=== PATIENT | female | born 1955 | race Caucasian/White ===

== ENCOUNTER → 2024-10-03 | Outpatient (CLI) | payer MEDICARE, SELFPAY ==
[2024-10-03 08:37] LABS: Basophils # (Auto) 0.1 Thou/mm3 (0.0-0.2); Basophils % (Auto) 1 % (0-2.5); Eosinophils # (Auto) 0.2 Thou/mm3 (0.0-0.5); Eosinophils % (Auto) 4 % (0-10); Hematocrit 40.9 % (36.0-46.0); Hemoglobin 13.6 g/dL (12.0-16.0); Immature Granulocytes % (Auto) 0 % (0-0); Immature Granulocytes Auto 0.03 Thou/mm3 (0.00-0.00); Lymphocytes # (Auto) 2.4 Thou/mm3 (1.0-4.8); Lymphocytes % (Auto) 35 % (10-50); Mean Corpuscular HGB Conc 33.3 g/dl (31.0-37.0); Mean Corpuscular Hemoglobin 28.9 pg (25.0-35.0); Mean Corpuscular Volume 87 fL (80-100); Monocytes # (Auto) 0.7 Thou/mm3 (0.0-0.8); Monocytes % (Auto) 11 % (0-12); Neutrophils # (Auto) 3.4 Thou/mm3 (1.8-7.7); Neutrophils % (Auto) 49 % (37-80); Nucleated Red Blood Cell % 0 /100 WBC (0); Platelet Count 284 Thou/mm3 (140-440); RDW Standard Deviation 40.6 fL (36.4-46.3); Red Blood Count 4.71 Miln/mm3 (4.00-5.20); White Blood Count 6.8 Thou/mm3 (3.6-11.0)
[2024-10-03 08:58] LABS: Glucose Estimated Average 151 mg/dL (80-131); Hemoglobin A1C 6.9 % Hgb (4.8-6.0); Vitamin B12 491 pg/mL (211-911); Vitamin D 25 Hydroxy Total 33.3 ng/mL (7.3-40.2)
[2024-10-03 09:05] LABS: Collection Type, Urine Clean Catch
[2024-10-03 09:07] LABS: Alanine Aminotransferase 28 U/L (10-49); Albumin, Serum 4.2 gm/dL (3.4-4.8); Alkaline Phosphatase 77 U/L (46-116); Anion Gap 9 (7-16); Aspartate Amino Transferase < 10 U/L (0-34); BUN/Creatinine Ratio 22 Ratio (12-20); Bilirubin,Total 0.4 mg/dL (0.3-1.2); Blood Urea Nitrogen 22 mg/dL (9-23); Calcium 9.2 mg/dL (8.3-10.6); Calcium (Corrected) 9.2 mg/dL (8.5-10.1); Carbon Dioxide 25.9 mMol/L (20.0-31.0); Cardiac Risk Estimate 3.6 RATIO (3.7-5.6); Chloride 104 mMol/L (98-107); Cholesterol 243 mg/dL (132-200); Globulin 2.1 gm/dL (2.3-3.5); Glucose 139 mg/dL (74-106); HDL Cholesterol 67 mg/dL (40-60); LDL Cholesterol,Calculated 154 mg/dL (0-130); Osmolality,Calculated 282 (275-295); Potassium 4.1 mMol/L (3.4-5.1); Sodium 139 mMol/L (136-145); Thyroid Stimulating Hormone 2.93 uIU/mL (0.55-4.78); Total Protein 6.3 gm/dL (5.7-8.2); Triglycerides 111 mg/dL (30-150); Uric Acid 5.4 mg/dL (3.1-7.8); eGFR > 60 See Note
[2024-10-03 09:36] LABS: Bilirubin,Urine Negative (Negative); Blood,Urine 2+ (Negative); Clarity,Urine Clear (Clear/Hazy); Color,Urine Lt-Yellow (Lt Yel-Yel); Culture Indicated,Urine Not Indicated; Glucose, Urine Negative (Negative); Ketones,Urine Negative (Negative); Leukocyte Esterase,Urine Negative (Negative); Nitrite,Urine Negative (Negative); PH,Urine 6.5 (5.0-7.0); Protein,Urine Negative (Neg - Trace); RBC,Urine 19 /hpf (0-3); Squamous Epithelial Cell,Urine 2 /hpf (0-5); Urobilinogen,Urine Negative mg/dL (0.0-1.0); WBC,Urine 2 /hpf (0-5)
== END | disposition home or self-care (01) ==
LOC: COPL 07:35
PROVIDERS: PCP Internal Medicine; Referring Provider Internal Medicine; Visit Provider Internal Medicine
DX: Z00.00 Encounter for general adult medical examination without abnormal findings (principal); E78.5 Hyperlipidemia, unspecified; J45.20 Mild intermittent asthma, uncomplicated; D51.9 Vitamin B12 deficiency anemia, unspecified; E55.9 Vitamin D deficiency, unspecified
CPT/HCPCS: 36415; 80053; 80061; 81001; 82306; 82607; 83036; 84443; 84550; 85025

== ENCOUNTER 2025-04-01 16:12 | Inpatient (IN) | payer MEDICARE, SELFPAY ==
[2025-04-01] VITALS (7 sets, daily range): BP systolic 130–174; BP diastolic 69–87; PULSE 62–101; RESP 15–19; TEMP 36.4–37.2; O2SAT 96–99; BMI 26.6
--- NOTE | 2025-04-01 16:27 | PD.EDNEURO ---
Neuro Symptoms Deficit-RME/HPI General Chief Complaint: Eye Problems Stated Complaint: LOST VISION LEFT EYE AT 1550, PAIN LEFT EYE Time Seen by Provider: 04/01/25 16:19 Arrival date/time: 04/01/25 16:12 Related Data Home Medications ?Medication ?Instructions ?Recorded ?Confirmed verapamil 120 mg tablet (Calan) 240 mg PO QDAY #0 tabs 02/05/15 05/14/23 ezetimibe 10 mg tablet 10 mg PO QDAY 01/13/22 05/14/23 Previous Rx's ?Medication ?Instructions ?Recorded metoclopramide HCl 5 mg tablet 5 mg PO QDAY 90 days #90 tabs 05/15/23 (Reglan) pantoprazole 40 mg tablet,delayed 40 mg PO QDAY 90 days #90 tabs 05/15/23 release (Protonix) Allergies Allergy/AdvReac Type Severity Reaction Status Date / Time No Known Allergies Allergy Verified 04/01/25 16:16 Course Vital Signs Vital signs: Vital Signs Temperature 98.6 F 04/01/25 16:23 Pulse Rate 101 H 04/01/25 16:23 Respiratory Rate 16 04/01/25 16:23 Blood Pressure 174/85 H 04/01/25 16:23 Pulse Oximetry (%) 96 04/01/25 16:23 Oxygen Delivery Method Room Air 04/01/25 16:23 Neuro Symptoms / Deficit MDM Narrative MDM Narrative:: Scribe Attestation: Katelyn Tellez, am scribing for and in the presence of Dr. Medrano. Provider Notation: Although this document has been carefully reviewed, there may still be some phonetic and other typographical errors. These errors are purely grammatical due to imperfections in the software program and should not be construed in any way to compromise the substance of the patient's medical care during this visit. Patient data External records reviewed:: [facility] previous records Clinical information provided by:: patient Social determinants that could affect healthcare access:: none Discharge Plan Prescriptions/Referrals Prescriptions/Med Rec: No Action ezetimibe 10 mg tablet 10 mg PO QDAY verapamil [Calan] 120 MG tablet 240 mg PO QDAY Qty: 0 pantoprazole [Protonix] 40 mg Tablet,Delayed Release (Dr/Ec) 40 mg PO QDAY 90 Days Qty: 90 1RF metoclopramide HCl [Reglan] 5 mg Tablet 5 mg PO QDAY 90 Days Qty: 90 1RF Patient/Caregiver Discharge Instructions Print Language: Portuguese
--- NOTE | 2025-04-01 16:29 | XR_ITS ---
Examination: AP chest single view Technique: Upright AP portable chest single view Date and time: April 01, 2025, 1702 hrs. Indications: Stroke alert altered mental status focal neurologic deficit today. Findings: Mild enlargement left ventricle. No aspiration pneumonia. No pulmonary edema. Moderate osteopenia. Impression: Negative for aspiration pneumonia.
--- NOTE | 2025-04-01 16:29 | EKG_ITS ---
[facility] Test Date: 2025-04-01 Pat Name: DIDIER VERDIN Department: Room: - Gender: Female [employer]: : 1955 Requested By: Clare Gardner Order Number: [id number] Reading MD: Clare Gardner Measurements Intervals [place] Rate: 67 P: 79 IL: 162 QRS: 89 QRSD: 97 T: 99 QT: 379 QTc: 401 Interpretive Statements SINUS RHYTHM NONSPECIFIC T-WAVE ABNORMALITY No previous ECG available for comparison /[id number]/[id number].pdf
--- NOTE | 2025-04-01 16:29 | XR_ITS ---
Examination: CT brain head without contrast. 2-D sagittal coronal reconstructions Date and time of exam:April 01, 2025, 1636 hrs. Indications: Stroke alert, left eye vision loss today CTDI: vol (mGy):47.4 DLP: (mGycm):911 Technique: Multiple CT axial sections of the brain have been obtained, 5 mm slice thickness. Contrast has not been administered. 2-D sagittal, coronal reconstructions have been obtained Low dose protocols were performed. One or more of the following dose reduction techniques were used; automated exposure control, adjustment of the mA and/or KV according to patient size, use of iterative reconstruction technique. Findings: No significant ventricular enlargement. Intra-axial or extra-axial hemorrhage density is not seen. No mass effect or midline shift Basal cisterns are not remarkable. Fourth ventricle is midline. Cranial vault intact. Impression: Negative for acute hemorrhage, mass effect or midline shift
--- NOTE | 2025-04-01 16:29 | XR_ITS ---
Examination: CTA carotids with intravenous contrast CTA brain, head with intravenous contrast. 2-D sagittal, coronal reconstructions. 3-D reconstructions. Exam date and time: April 01, 2025, 1646 hrs. Indications: Stroke alert, onset focal neurologic deficit loss of vision in the left side today CTDI: vol (mGy) 15.7 DLP: (mGycm) 159 Technique: Multiple CTA axial brain, head carotid images post intravenous contrast injection 75 cc, [id number]. 2-D sagittal, coronal reconstructions. 3-D reconstructions, 3-D post processing including vascular maximum intensity projection images. Low dose protocols were performed. One or more of the following dose reduction techniques were used; automated exposure control, adjustment of the mA and/or KV according to patient size, use of iterative reconstruction technique. Findings: No significant common carotid carotid bifurcation or internal carotid artery stenoses. Dominant left vertebral artery in the neck with no critical stenoses. Intracranial vertebral arteries basilar artery posterior cerebral artery branches do fill Juxtasellar supraclinoid portions of the internal carotid arteries, M1 segments middle cerebral arteries and anterior cerebral arteries demonstrate no large vessel arterial occlusions Impression: No significant neck arterial stenoses No cerebral large vessel arterial occlusions or thrombus
[2025-04-01 16:46] LABS: Basophils # (Auto) 0.1 Thou/mm3 (0.0-0.2); Basophils % (Auto) 1 % (0-2.5); Eosinophils # (Auto) 0.3 Thou/mm3 (0.0-0.5); Eosinophils % (Auto) 3 % (0-10); Hematocrit 42.8 % (36.0-46.0); Hemoglobin 14.7 g/dL (12.0-16.0); Immature Granulocytes Auto 0.03 Thou/mm3 (0.00-0.00); Lymphocytes # (Auto) 3.4 Thou/mm3 (1.0-4.8); Lymphocytes % (Auto) 34 % (10-50); Mean Corpuscular HGB Conc 34.3 g/dl (31.0-37.0); Mean Corpuscular Hemoglobin 30.1 pg (25.0-35.0); Mean Corpuscular Volume 88 fL (80-100); Monocytes # (Auto) 0.6 Thou/mm3 (0.0-0.8); Monocytes % (Auto) 6 % (0-12); Neutrophils # (Auto) 5.6 Thou/mm3 (1.8-7.7); Neutrophils % (Auto) 56 % (37-80); Nucleated Red Blood Cell # 0.00 Thou/mm3 (0.00-0.00); Nucleated Red Blood Cell % 0 /100 WBC (0); Platelet Count 274 Thou/mm3 (140-440); RDW Standard Deviation 41.3 fL (36.4-46.3); Red Blood Count 4.89 Miln/mm3 (4.00-5.20); White Blood Count 10.0 Thou/mm3 (3.6-11.0)
[2025-04-01 16:57] LABS: INR 1.0 (0.9-1.3); Partial Thromboplastin Time 24.8 Seconds (22.0-36.0); Prothrombin Time 10.9 Seconds (9.0-12.2)
[2025-04-01 17:01] LABS: HCG Titer if Positive Negative
--- NOTE | 2025-04-01 17:03 | ESCONSULT_ITS ---
Tele Neuro Consultation Consultation Date 04/01/25 Most Recent Vital Signs Last Vital Signs Temp 99.0 F 04/01/25 16:56 Pulse 77 04/01/25 16:58 Resp 16 04/01/25 16:56 BP 153/69 H 04/01/25 16:56 Pulse Ox 98 04/01/25 16:56 O2 Del Method Room Air 04/01/25 16:56 Laboratory-Coagulation Panel PT 10.9 Seconds (9.0-12.2) 04/01/25 16:30 INR 1.0 (0.9-1.3) 04/01/25 16:30 APTT 24.8 Seconds (22.0-36.0) 04/01/25 16:30 Consultation Narrative [facility] Tele[facility]urology Consult [facility] Patient Name:???DIDIER VERDIN Date of :???1955 Identification Number:??? Date of Service:???04/01/2025 16:27:09 Diagnosis:?H54.62 - Unqualified visual loss, left eye, normal vision right eye Impression: ?Transient left vision loss. The differential diagnosis includes central retinal artery occlusion (CRAO), embolic transient ischemic attack (TIA) involving the posterior cerebral or ophthalmic circulation, and less likely, temporal arteritis. ? ?There are no systemic signs or symptoms to suggest giant cell arteritis, but given age and presentation, ESR and CRP are recommended to rule out temporal arteritis. ? ?I recommend MRI brain to assess for acute ischemic changes and to evaluate posterior circulation structures. ? ?CT head was negative; CTA head and neck is negative for LVO ? ?Ophthalmology consultation is also recommended to evaluate retinal findings that may support CRAO. ? ?Recommend initiating dual antiplatelet therapy with aspirin 81 mg daily and clopidogrel 75 mg daily until diagnosis is confirmed. ? ?Given the transient nature of symptoms and absence of disabling deficit, the patient is not a candidate for TNK. Our recommendations are outlined below. Recommendations: ? Stroke/Telemetry Floor ? Neuro Checks ? Bedside Swallow Eval ? DVT Prophylaxis ? IV Fluids, Normal Saline ? Head of Bed 30 Degrees ? Euglycemia and Avoid Hyperthermia (PRN Acetaminophen) Advanced Imaging: CTA Head and Neck Completed. LVO:No Patient is not a candidate for PILY Metrics: Last Known Well: 04/01/2025 16:30:51 Dispatch Time: 04/01/2025 16:27:09 Arrival Time: 04/01/2025 16:30:53 Initial Response Time: 04/01/2025 16:28:34Symptoms: vision loss . Initial patient interaction: 04/01/2025 16:37:23 NIHSS Assessment Completed: 04/01/2025 16:45:30Patient is not a candidate for Thrombolytic. Thrombolytic Medical Decision: 04/01/2025 16:45:33Patient was not deemed candidate for Thrombolytic because of following reasons: other diagnosis suspected suspect crao. symptoms improved . CT Head: I personally reviewed all the CT images that were available to me and it showed: no acute changes Primary Provider Notified of Diagnostic Impression and Management Plan on: 04/01/2025 16:48:04 History of Present Illness:Patient is a 69 year old Female. Patient was brought by EMS for symptoms of vision loss . The patient is a 69-year-old right-handed female with a history of supraventricular tachycardia (SVT), diabetes mellitus, and prior cardiac ablations, who presented at approximately 3:50 PM with the acute onset of left- sided vision loss. The episode began suddenly and was initially characterized by complete vision loss in the left visual field, lasting approximately two minutes. This was followed by the perception of waves in the same field, with partial improvement noted thereafter. However, the vision changes recurred briefly before reportedly resolving to her baseline at the time of evaluation. The patient denies any associated neurological symptoms such as weakness, numbness, speech disturbance, vertigo, or headache. She has no history of similar symptoms, no prior migraines, and no jaw claudication or scalp tenderness. Her blood pressure remained within normal limits throughout the episode. She reports no recent trauma or infections. There is no known history of autoimmune disease. On examination, no focal neurological deficits were appreciated, and she reported that her vision had returned to normal. Past Medical History: ?Hypertension ?Diabetes Mellitus ?Hyperlipidemia ?There is no history of Atrial Fibrillation ?There is no history of Stroke ?There is no history of Seizures Medications: No Anticoagulant use? No Antiplatelet use Reviewed EMR for current medications Allergies:? Reviewed Social History: Patient Is: Single Smoking: No Alcohol Use: No Drug Use: No Family History: There is no family history of premature cerebrovascular disease pertinent to this consultation ROS : 14 Points Review of Systems was performed and was negative except mentioned in HPI. Past Surgical History: There Is No Surgical History Contributory To Today?s Visit Examination: BP(174/85),?Pulse(101), 1A: Level of Consciousness - Alert; keenly responsive?+ 0 1B: Ask Month and Age - Both Questions Right?+ 0 1C: Blink Eyes & Squeeze Hands - Performs Both Tasks?+ 0 2: Test Horizontal Extraocular Movements - Normal?+ 0 3: Test Visual Stevens - No Visual Loss?+ 0 4: Test Facial Palsy (Use Grimace if Obtunded) - Normal symmetry?+ 0 5A: Test Left Arm Motor Drift - No Drift for 10 Seconds?+ 0 5B: Test Right Arm Motor Drift - No Drift for 10 Seconds?+ 0 6A: Test Left Leg Motor Drift - No Drift for 5 Seconds?+ 0 6B: Test Right Leg Motor Drift - No Drift for 5 Seconds?+ 0 7: Test Limb Ataxia (FNF/Heel-Jade) - No Ataxia?+ 0 8: Test Sensation - Normal; No sensory loss?+ 0 9: Test Language/Aphasia - Normal; No aphasia?+ 0 10: Test Dysarthria - Normal?+ 0 11: Test Extinction/Inattention - No abnormality?+ 0 NIHSS Score:?0 Pre-Morbid Modified Towanda Scale: 0 Points = No symptoms at all Spoke with :?Dr Campo This consult was conducted in real time using interactive audio and video technology. Patient was informed of the technology being used for this visit and agreed to proceed. Patient located in hospital and provider located at home/office setting. Patient is being evaluated for possible acute neurologic impairment and high probability of imminent or life-threatening deterioration. I spent total of 35 minutes providing care to this patient, including time for face to face visit via telemedicine, review of medical records, imaging studies and discussion of findings with providers, the patient and/or family. Dr René Burger [facility] For Inpatient follow-up with [facility] physician please call [facility] at . As we are not an outpatient service for any post hospital discharge needs please contact the hospital for assistance. If you have any questions for the [facility] physicians or need to reconsult for clinical or diagnostic changes please contact us via [facility] at . Signature :Colin Burger
[2025-04-01 17:18] LABS: Sed Rate (ESR) 14 mm/hr (0-30)
[2025-04-01 17:26] LABS: Alanine Aminotransferase 55 U/L (10-49); Albumin, Serum 4.7 gm/dL (3.4-4.8); Albumin/Globulin Ratio 2.4 (1.2-2.2); Alkaline Phosphatase 85 U/L (46-116); Anion Gap 11 (7-16); Aspartate Amino Transferase 31 U/L (0-34); BUN/Creatinine Ratio 14 Ratio (12-20); Bilirubin,Total 0.4 mg/dL (0.3-1.2); Blood Urea Nitrogen 11 mg/dL (9-23); C-Reactive Protein < 0.5 mg/dL (0.0-0.9); Calcium 9.9 mg/dL (8.3-10.6); Calcium (Corrected) 9.9 mg/dL (8.5-10.1); Carbon Dioxide 24.1 mMol/L (20.0-31.0); Chloride 106 mMol/L (98-107); Creatine Kinase 58 U/L (34-171); Creatinine (Component) 0.8 mg/dL (0.6-1.3); Estimated Creatinine Clearance 63.9 mL/min (>60); Globulin 2.0 gm/dL (2.3-3.5); Glucose 140 mg/dL (74-106); Magnesium 2.1 mg/dL (1.6-2.6); Osmolality,Calculated 282 (275-295); Potassium 3.8 mMol/L (3.4-5.1); Sodium 141 mMol/L (136-145); Total Protein 6.7 gm/dL (5.7-8.2); Troponin I < 0.020 ng/mL (0.0-0.045); eGFR > 60 See Note
--- NOTE | 2025-04-01 17:43 | PD.EDEYE ---
ED Eye Problem RME/HPI General Chief complaint: Eye Problems Stated complaint: LOST VISION LEFT EYE AT 1550, PAIN LEFT EYE Time Seen by Provider: 04/01/25 16:19 Arrival date/time: 04/01/25 16:12 Mode of arrival: ambulatory RME / HPI RME / HPI Narrative: Ms. George is a 69-year-old female with past medical history of SVT (follows Dr. Thakur) s/p cardiac ablation, umy-xgvqutc-lbnazokgh type 2 diabetes mellitus, dyslipidemia, GERD and chronic constipation who presented to [facility] emergency department with a chief complaint of acute onset of left-sided vision loss. Patient reported that her the episode became suddenly reported complete vision loss of the entire left eye lasting for approximately 2 minutes followed by waves of perception in the field and partial improvement thereafter, now back at her baseline. Currently patient denies any visual deficit, denies seeing any black spots. Patient otherwise denies any other symptoms, complaints of constipation which has been chronic she was prescribed lactulose recently for the same. Patient's primary care physician is Dr. Campos, director strategy Dr. Thakur, patient reports seeing a urologist in [place]. Related Data Home Medications ?Medication ?Instructions ?Recorded ?Confirmed verapamil 120 mg tablet (Calan) 240 mg PO QDAY #0 tabs 02/05/04/01/25 Previous Rx's ?Medication ?Instructions ?Recorded aspirin 81 mg tablet,delayed 81 mg PO QDAY #30 tabs 04/03/25 release atorvastatin 20 mg tablet 40 mg (2 x 20 mg) PO HS #30 tabs 04/03/25 Allergies Allergy/AdvReac Type Severity Reaction Status Date / Time No Known Allergies Allergy Verified 04/01/25 16:16 Review of Systems Review of Systems Systems Reviewed: All systems reviewed, normal except as documented Past Medical History Past Medical History Comments PMH COMMENT: PMH: Positive for SVT (follows Dr. Thakur) s/p cardiac ablation, dyx-gqxdktm-gcumkuudl type 2 diabetes mellitus, dyslipidemia, GERD and chronic constipation PSHx: Ablation in 2007, intraocular lens placement Allergies: No known allergies Social history: -Smoking: History of greater than 40 pack years -Alcohol Use: Denies -Illicit Drug Use: Denies Family History: Denies pertinent family history ED Exam Narrative Physical exam: Physical Exam General: Awake and in no acute distress. Conversational and non-toxic appearing. HEENT: Normocephalic, atraumatic, mucous membranes moist. Heart: Regular rate and rhythm, no murmurs. Lungs: Clear to auscultation with no wheezing or crackles. Abdomen: Soft, nondistended, nontender, positive bowel sounds. ?No guarding or rebound tenderness. Neurologic: Alert and oriented x3, no gross neurological deficit, and patient able to move all 4 extremities. Extremities: No edema. Skin: No rash or ecchymoses. Course Quality Measures none Orders Category Date Time Status Admit to Inpatient Status Routine Admission 04/01/25 18:09 Active Patient Condition Routine Admission 04/01/25 18:08 Ordered Activity as Tolerated Routine Care 04/01/25 18:09 Ordered Bedside Blood Glucose NOW Care 04/01/25 16:29 Completed Pressure Vessel Inspector NOW Care 04/01/25 16:29 Completed Continuous Pulse Oximetry NOW Care 04/01/25 16:29 Completed Continuous Pulse Oximetry NOW Care 04/01/25 18:08 Completed EKG (ED ONLY) *Do not use* NOW Care 04/01/25 16:29 Completed Flu & Pneumonia Vaccine Screen ONCE Care 04/01/25 18:08 Completed In and Out Catheter NEEDED Care 04/01/25 16:29 Completed Insert IV NOW Care 04/01/25 16:29 Completed Miscellaneous Nursing Order NOW Care 04/01/25 18:08 Completed NIH Stroke Scale now Care 04/01/25 16:29 Completed NPO NOW Care 04/01/25 16:29 Completed Neuro Check Q1HR Care 04/01/25 16:29 Completed Neuro Check Q4H Care 04/01/25 18:08 Completed Notify provider NEEDED Care 04/01/25 18:08 Completed Nurse Swallow Screen x1 Care 04/01/25 16:29 Completed Obtain weight daily Care 04/01/25 18:09 Completed Sequential Compression Device QSHIFT Care 04/01/25 18:08 Completed Consult to Neurology / Tele-Neurology Routine Cons 04/01/25 18:12 Active Consult to Neurology / Tele-Neurology Stat Cons 04/01/25 16:[address] angio stroke protocol Stat Exams 04/01/25 16:[address] stroke protocol Stat Exams 04/01/25 16:29 Completed EKG (ED Only) Stat Exams 04/01/25 16:29 Draft XR chest 1V portable Stat Exams 04/01/25 16:29 Completed C-Reactive Protein Stat Lab 04/01/25 16:30 Completed CBC AM DRAW Lab 04/02/25 06:04 Completed CBC AM DRAW Lab 04/03/25 05:48 Completed CBC Stat Lab 04/01/25 16:30 Completed CK [Creatine Kinase] Stat Lab 04/01/25 16:30 Completed Comprehensive Metabolic Panel AM DRAW Lab 04/02/25 06:04 Completed Comprehensive Metabolic Panel AM DRAW Lab 04/03/25 05:48 Completed Comprehensive Metabolic Panel Stat Lab 04/01/25 16:30 Completed Drug Screen,Urine Stat Lab 04/01/25 17:47 Completed HCG Titer if Positive Stat Lab 04/01/25 16:30 Completed Lipid Panel AM DRAW Lab 04/02/25 06:04 Completed Magnesium AM DRAW Lab 04/02/25 06:04 Completed Magnesium Stat Lab 04/01/25 16:30 Completed Partial Thromboplastin Time Stat Lab 04/01/25 16:30 Completed Phosphorous AM DRAW Lab 04/02/25 06:04 Completed Prothrombin Time with INR Stat Lab 04/01/25 16:30 Completed Sed Rate (ESR) Stat Lab 04/01/25 16:30 Completed Troponin I Stat Lab 04/01/25 16:30 Completed Urinalysis, C/S if Indicated Stat Lab 04/01/25 17:47 Completed Acetaminophen Tab [Tylenol Tab] Med 04/01/25 18:08 Discontinued 650 mg PO Q6H PRN Ondansetron Inj [Zofran Inj] Med 04/01/25 18:08 Discontinued 4 mg IVP Q6H PRN Senna [Senokot] Med 04/02/25 09:00 Discontinued 1 tab PO QDAY Code Status Routine Oth 04/01/25 18:08 Completed Oxygen Delivery NOW RT 04/01/25 16:29 Completed Vital Signs Vital signs: Vital Signs Temperature 98.6 F 04/01/25 16:23 Pulse Rate 101 H 04/01/25 16:23 Respiratory Rate 16 04/01/25 16:23 Blood Pressure 174/85 H 04/01/25 16:23 Pulse Oximetry (%) 96 04/01/25 16:23 Oxygen Delivery Method Room Air 04/01/25 16:23 Eye MDM Narrative MDM Narrative:: Patient p/w sudden onset left eye vision loss, transient now back at her baseline. In the ED stroke alert was initiated, patient was seen by teleneurologist, teleneuro NIHSS score 0, CT scan of head negative for any acute hemorrhage, midline shift. CTA head and neck negative for any large vessel occlusion. EKG obtained in ED shows sinus rhythm teleneuro recommendations currently to obtain MRI, no TNK indicated for now, obtain ESR CRP, in-house neurology consult. Per teleneuro DDx giant cell arteritis, complicated migraine. Intraocular pressure measured in ED, right eye IOP 13, left IOP 12 with tonometer. No evidence of glaucoma. Bedside ultrasound left eye shows no retinal detachment, vitreous detachment or hemorrhage. No evidence of increased ICP. Will admit for stroke work up and management of transient unilateral vision loss. # Painless loss of vision left eye, resolved # CVA workup Past medical history of SVT (follows Dr. Thakur) s/p cardiac ablation, jzc-ckkxrcb-htbmyibgm type 2 diabetes mellitus, dyslipidemia, GERD and chronic constipation Reported left-sided vision loss, sudden with complete loss, symptoms resolved on exam, no other neurological deficits or visual deficits currently. NIHSS 0, CT head negative, CTA negative, ED showed sinus rhythm Intraocular pressure measured in ED, right eye IOP 13, left IOP 12 with tonometer. Bedside ultrasound left eye shows no retinal detachment -Ordered ESR CRP -Consulted hospitalist team for admission for MRI and further workup Case discussed with Attending Physician Dr. Mitchell Campo MD Internal Medicine PGY-2 Disclaimer: This note was dictated by speech recognition. Minor errors in pega developer may be present due to voice recognition software. Patient data External records reviewed:: [facility] previous records Clinical information provided by:: patient Social determinants that could affect healthcare access:: none Patient has the following chronic illnesses:: Positive for SVT (follows Dr. Thakur) s/p cardiac ablation, hku-lcbckds-ogpowxtsb type 2 diabetes mellitus, dyslipidemia, GERD and chronic constipation How is presenting disease/condition affected by chronic disease/condition?: caused by (Risk factors as above) Evaluation data The following diagnostics were reviewed and interpreted by me:: lab results, radiology exam(s) and EKG tracing(s) Lab and/or radiology exams considered but not ordered:: N/A Interpretation Summary: CT scan of head negative for any acute hemorrhage, midline shift. CTA head and neck negative for any large vessel occlusion. EKG obtained in ED shows sinus rhythm Medications / Prescriptions Medications or Prescriptions considered but not ordered:: N/A Medication administrations:: Medication Administration History Discontinued Medications Acetaminophen (Acetaminophen 325 Mg Tablet) 650 mg PO Q6H PRN PRN Reason: PAIN SCALE 1-3 (mild Stop: 05/01/25 18:07 Last Admin: 04/02/25 19:52 Dose: 650 mg Documented By: JASON Alprazolam (Alprazolam 0.25 Mg Tablet) 0.5 mg PO X1 ONE Stop: 04/02/25 19:22 Last Admin: 04/02/25 20:18 Dose: 0.5 mg Documented By: JASON Alprazolam (Alprazolam 0.25 Mg Tablet) 0.5 mg PO HS PRN PRN Reason: ANXIETY Stop: 04/08/25 20:59 Aspirin (Aspirin 325 Mg Tablet) 325 mg PO X1 ONE Stop: 04/01/25 18:15 Last Admin: 04/01/25 19:00 Dose: 325 mg Documented By: KESHIA Aspirin (Aspirin Ec 81 Mg Tabec) 81 mg PO QDAY [facility] Stop: 05/02/25 08:59 Last Admin: 04/03/25 09:16 Dose: 81 mg Documented By: Admin: 04/02/25 09:58 Dose: 81 mg Documented By: SUNDAR Atorvastatin Calcium (Atorvastatin Calcium 20 Mg Tablet) 40 mg PO HS [facility] Stop: 05/01/25 20:59 Last Admin: 04/02/25 20:17 Dose: 40 mg Documented By: Admin: 04/01/25 21:28 Dose: 40 mg Documented By: VIRY Clopidogrel Bisulfate (Clopidogrel Bisulfate 75 Mg Tablet) 300 mg PO X1 ONE Stop: 04/01/25 18:15 Last Admin: 04/01/25 18:54 Dose: 300 mg Documented By: KESHIA Clopidogrel Bisulfate (Clopidogrel Bisulfate 75 Mg Tablet) 75 mg PO QDAY [facility] Stop: 05/02/25 08:59 Last Admin: 04/03/25 09:16 Dose: 75 mg Documented By: Admin: 04/02/25 09:58 Dose: 75 mg Documented By: SUNDAR Verapamil 240 Mg 24 (Hr Er) 0 ea PO QDAY [facility] Stop: 05/02/25 08:59 Last Admin: 04/03/25 10:56 Dose: 1 capsule Documented By: Admin: 04/02/25 12:49 Dose: 1 capsule Documented By: SUNDAR Dextrose (Dextrose 50%-Water Inj 50 Ml Syringe) 25 ml IV Q15MIN PRN PRN Reason: BG 50-70 responsive npo pt Stop: 05/01/25 18:49 Dextrose (Dextrose 50%-Water Inj 50 Ml Syringe) 50 ml IV Q15MIN PRN PRN Reason: BG <50 OR BG <70 & pt unresponsive Stop: 05/01/25 18:49 Diphenhydramine HCl (Diphenhydramine 25 Mg Capsule) 25 mg PO Q6HR PRN PRN Reason: ITCHING Stop: 05/02/25 11:36 Glucagon (Glucagon Inj 1 Mg Vial) 1 mg IM Q15MIN PRN PRN Reason: BG <70, and no IV access Insulin Human Lispro (Insulin Lispro (Admelog) 1 Unit/0.01 Ml Unit) 0 unit SC [facility]; Protocol Stop: 05/02/25 07:29 Last Admin: 04/03/25 08:00 Dose: Not Given Documented By: CARTER Non-Admin Reason: Patient Refused Admin: 04/02/25 17:18 Dose: Not Given Documented By: SUNDAR Non-Admin Reason: BG 107 Admin: 04/02/25 12:30 Dose: Not Given Documented By: SUNDAR Non-Admin Reason: BG 91 Admin: 04/02/25 07:31 Dose: Not Given Documented By: SUNDAR Non-Admin Reason: BG 116 Lactulose (Lactulose Syrup 20 Gm/30 Ml Udc) 10 gm PO X1 ONE; Protocol Stop: 04/02/25 19:22 Last Admin: 04/02/25 20:17 Dose: 10 gm Documented By: JASON Melatonin (Melatonin 3 Mg Tablet) 6 mg PO X1 ONE Stop: 04/01/25 23:03 Last Admin: 04/01/25 23:22 Dose: 6 mg Documented By: VIRY Melatonin (Melatonin 3 Mg Tablet) 6 mg PO HS ALESSIO Stop: 05/02/25 20:59 Last Admin: 04/02/25 20:26 Dose: Not Given Documented By: JASON Non-Admin Reason: Patient Refused Ondansetron HCl (Ondansetron Inj 2 Mg/Ml Inj 2 Ml) 4 mg IVP Q6H PRN; Protocol PRN Reason: NAUSEA OR VOMITING Stop: 05/01/25 18:07 Patient Own Medication (Patient's Own Med 1 Ea Ea) 240 ea PO QDAY ALESSIO Stop: 05/02/25 08:59 Polyethylene Glycol (Polyethylene Glycol 17 Gm Packet) 17 gm PO X1 PRN PRN Reason: constipation Sennosides (Senna Tablet) 1 tab PO QDAY ALESSIO; Protocol Stop: 05/02/25 08:59 Last Admin: 04/03/25 09:15 Dose: 1 tab Documented By: Admin: 04/02/25 09:58 Dose: 1 tab Documented By: SUNDAR as above Consultations Consultation(s) initiated? (list below): Yes Consultation #1 (Physician, Specialty, Details): Teleneuro, stroke Alert Diagnosis Eye Problem Differential Diagnosis: other Most likely diagnosis given after review of the tests above:: Complicated migraine, TIA, stroke, giant cell arteritis, MS Admission Indicated Admission indicated?: indicated Explain why admission is indicated or not indicated:: Admission indicated for CVA workup Admission Request Was there a request for admission?: Yes Admission Attestation Admission request attestation: Discussed case with Hospitalist service regarding admission. Discussed patients ED course, exam findings, labs, and radiology results. The Hospitalist [agrees] to accept the patient for admission. Disposition Plan Disposition Plan: Admit Critical Care Time Critical Care Time Critical Care Time: Yes Total Critical Care Time (min.): 60 Attestation: ?I spent 60 minutes of critical care time with this patient not including reportable procedures. There was an acute impairment of an organ system with a high probability of imminent or life threatening deterioration in the patient's condition. Interventions and changes required in the course of therapy are located in the chart. Time involved was spent in direct patient care, reviewing ancillary data, old records, consulting with decision makers, EMS, other doctors, giving orders and documenting. Discharge Plan Plan Patient Disposition: Admit Acute Care w/in Hospital Patient condition on transfer: Stable Problem List Clinical Impression: TIA (transient ischemic attack)
[2025-04-01 18:02] LABS: Collection Type, Urine Clean Catch; Squamous Epithelial Cell,Urine 0 /hpf (0-5)
[2025-04-01 18:07] LABS: Bilirubin,Urine Negative (Negative); Blood,Urine 1+ (Negative); Clarity,Urine Clear (Clear/Hazy); Color,Urine Colorless (Lt Yel-Yel); Culture Indicated,Urine Not Indicated; Glucose, Urine Negative (Negative); Ketones,Urine Negative (Negative); Leukocyte Esterase,Urine Negative (Negative); Nitrite,Urine Negative (Negative); PH,Urine 6.5 (5.0-7.0); Protein,Urine Negative (Neg - Trace); RBC,Urine 2 /hpf (0-3); Specific Gravity,Urine 1.021 (1.001-1.035); Urobilinogen,Urine Negative mg/dL (0.0-1.0); WBC,Urine < 1 /hpf (0-5)
--- NOTE | 2025-04-01 18:11 | ECHO_ITS ---
Transthoracic Echo Report Ht (in): 64 Wt (lb): 155 Exam Location: Echo Lab Status: Inpatient Director Of Search Engine Marketing: Janelle Juarez Indications: Procedure Performed: BP: 141 / 86 HR: 64 Technical Quality: Technically difficult study MEASUREMENTS (Male / Female) Normal Values 2D ECHO LV Diastolic Diameter PLAX 4.3 cm 4.2 - 5.9 / 3.9 - 5.3 cm LV Systolic Diameter PLAX 2.7 cm IVS Diastolic Thickness 0.9 cm 0.6 - 1.0 / 0.6 - 0.9 cm LVPW Diastolic Thickness 1.0 cm 0.6 - 1.0 / 0.6 - 0.9 cm LV Relative Wall Thickness 0.4 LVOT Diameter 1.8 cm LV Ejection Fraction MOD BP 55.3 % >= 55 % LV Cardiac Index MOD BP 1345.7 cm?/min?m? LV Ejection Fraction MOD 4C 48.6 % LV Cardiac Index MOD 4C 1078.7 cm?/min?m? LV Ejection Fraction 4C AL 50.2 % LV Cardiac Index 4C AL 1156.5 cm?/min?m? LV Ejection Fraction MOD 2C 58.5 % LV Cardiac Index MOD 2C 1427.6 cm?/min?m? LV Ejection Fraction 2C AL 60.4 % LV Cardiac Index 2C AL 1457.5 cm?/min?m? LA Volume Index 24.3 cm?/m? 16 - 28 cm?/m? M-MODE Aortic Root Diameter MM 3.2 cm LA Systolic Diameter MM 3.3 cm LA Ao Ratio MM 1.0 AV Cusp Separation MM 2.0 cm DOPPLER AV Peak Velocity 109.0 cm/s AV Peak Gradient 4.8 mmHg AV Mean Gradient 2.0 mmHg AV Velocity Time Integral 27.2 cm LVOT Peak Velocity 96.8 cm/s LVOT Peak Gradient 3.7 mmHg LVOT Velocity Time Integral 19.8 cm LVOT Cardiac Index 1793.7 cm?/min?m? AV Area Cont Eq vti 1.9 cm? AV Area Cont Eq pk 2.3 cm? MV Area PHT 3.1 cm? MR Peak Velocity 462.0 cm/s MR Peak Gradient 85.4 mmHg Mitral E Point Velocity 82.0 cm/s Mitral A Point Velocity 117.0 cm/s Mitral E to A Ratio 0.7 LV E' Lateral Velocity 6.7 cm/s Mitral E to LV E' Lateral Ratio 12.2 LV E' Septal Velocity 5.4 cm/s Mitral E to LV E' Septal Ratio 15.1 PV Peak Velocity 92.3 cm/s PV Peak Gradient 3.4 mmHg FINDINGS Left Ventricle Normal left ventricular size, wall thickness, systolic function with no obvious regional wall motion abnormalities. The ejection fraction is visually estimated at 65 %. There is grade I diastolic dysfunction of the left ventricle (impaired relaxation pattern). Right Ventricle The right ventricle is normal in size and systolic function. Left Atrium The left atrium is normal by two-dimensional, color flow and Doppler imaging with no structural abnormalities, no thrombus formation present. Right Atrium The right atrium is normal by two-dimensional imaging, color flow and Doppler imaging with no structural abnormalities, no thrombus formation present. Atrial Septum The interatrial septum appears normal with no evidence of a shunt. Aorta The aorta is normal by two-dimensional, color flow and Doppler interrogation. Mitral Valve The mitral valve is normal by two-dimensional, color flow and Doppler interrogation. Trace to mild mitral regurgitation. Aortic Valve The aortic valve is trileaflet and normal by two-dimensional, color flow and Doppler interrogation. There is no significant aortic valve regurgitation. Tricuspid Valve The tricuspid valve is normal by two-dimensional, color flow and Doppler interrogation. There is no significant tricuspid valve regurgitation. Pulmonic Valve The pulmonic valve is not well visualized. There is no significant pulmonic valve regurgitation. Vessels The pulmonary artery appears normal. The inferior vena cava pulmonary and hepatic veins appear normal. Pericardium The pericardium is normal by two-dimensional imaging. There is no significant pericardial effusion. CONCLUSIONS Indication: stroke r/o with bubble study Negative bubble study. Normal LV size and function. There is grade I diastolic dysfunction. Estimated EF at 65%. The RV is normal in size and systolic function. Trace to mild MR. Trace TREnriqueta Norwood (Electronically Signed) Final Date: 03 April 2025 11:59
[2025-04-01 18:12] LABS: Amphetamine/Methamp Scrn,U Negative (Negative); Barbiturate Screen,Urine Negative (Negative); Benzodiazepines Screen,Urine Negative (Negative); Benzoylecgonine Screen, Ur Negative (Negative); Fentanyl Screen,Urine Negative (Negative); Opiate Screen,Urine Negative (Negative); THC Screen,Urine Negative (Negative)
--- NOTE | 2025-04-01 18:17 | PD.RESHP ---
Documentation for date of: 04/01/25 HPI History of Present Illness Chief complaint: Loss of vision in the left eye History of present illness: 69-year-old female with past medical history of supraventricular tachycardia status post ablation, hysterectomy, hyperlipidemia, nep-zxpaydh-xrbtsrfmt type 2 diabetes, constipation presenting to the ED on 04/01 with episode of complete loss of vision in the left eye which lasted roughly few minutes. Patient states she was sitting and watching TV at home when suddenly she started gradually losing vision in her left eye and then had complete vision loss which lasted several minutes. Patient states her vision spontaneously returned but she has never experienced such episode before. Patient has extensive medical history including cardiac history and has been on verapamil SR since the year 1999 for supraventricular tachycardia. Patient has tried ablations in the past which have apparently had mixed results, last one was in 2007. Patient currently follows up with sql server dba developer, Dr. Thakur and denies having any concerning cardiac symptoms at this time. Medical history: As stated above Surgical history: Hysterectomy, right thumb procedure Allergies: NKDA Medications: Pending med rec Family history: Noncontributory Social history: Patient lives with partner, denies any alcohol, tobacco or illicit drug use. ROS: All 12 systems assessed and the patient denies unless otherwise stated in HPI In the ED, patient presented hypertensive 174/85, tachycardic with heart rate 101, respiratory rate of 16, afebrile satting 96 on room air. Pertinent lab findings included glucose of 140, ALT 55, AST 31, T. bili of 0.4, troponin within normal limits, urinalysis was negative for any signs of urinary tract infection. U tox was also negative. Chest x-ray showed no acute findings, head CT was negative for any acute hemorrhage and head and neck CTA was also negative. EKG showed sinus rhythm with nonspecific T wave changes. Stroke alert was initiated in the ED with NIHSS score of 0. Recommendation was to admit the patient for workup of stroke/TIA and to obtain MRI. Exam Vital Signs Temp Pulse Resp BP Pulse Ox O2 Del Method 99.0 F 77 16 153/69 H 98 Room Air 04/01/25 16:56 04/01/25 16:58 04/01/25 16:56 04/01/25 16:56 04/01/25 16:56 04/01/25 16:56 Narrative Exam Physical Exam: GENERAL: Awake, answering questions appropriately, appears stated age HEENT: NC/AT. Moist mucosa. PERRLA/EOMI. CARDIO: Heart RRR, no obvious murmurs, no JVD. PULM: No coughing or visible SOB. Lungs CTA B/L. GI: Abdomen soft, NT/ND, +BS. SKIN/MSK/EXT: No wounds/discoloration/rashes/edema/amputations noted. +Pedal pulses present B/L. NEURO: Oriented x3, cranial nerves II to XII grossly intact, muscle strength 5 out of 5 on upper and lower extremities, sensations grossly intact, no focal neurologic deficits noted, moves extremities x4 Results: Labs 04/03/25 05:48 04/03/25 05:48 Labs: Short CBC 04/01/25 Range/Units 16:30 WBC 10.0 (3.6-11.0) Thou/mm3 Hgb 14.7 (12.0-16.0) g/dL Hct 42.8 (36.0-46.0) % Plt Count 274 (140-440) Thou/mm3 BMP 04/01/25 16:30 Sodium 141 Potassium 3.8 Chloride 106 Carbon Dioxide 24.1 BUN 11 Creatinine 0.8 Glucose 140 H Calcium 9.9 Cardiac Enzymes 04/01/25 Range/Units 16:30 Total Creatine Kinase 58 (34-171) U/L Troponin I < 0.020 (0.0-0.045) ng/mL Liver Function 04/01/25 Range/Units 16:30 Total Bilirubin 0.4 (0.3-1.2) mg/dL AST 31 (0-34) U/L ALT 55 H (10-49) U/L Alkaline Phosphatase 85 (46-116) U/L Albumin 4.7 (3.4-4.8) gm/dL Urine 04/01/25 Range/Units 17:47 Urine Color Colorless A (Lt Yel-Yel) Urine Clarity Clear (Clear/Hazy) Urine pH 6.5 (5.0-7.0) Ur Specific [place] 1.021 (1.001-1.035) Urine Protein Negative (Neg - Trace) Urine Glucose (UA) Negative (Negative) Quality Measures Quality Measures VTE prophylaxis Advance care planning discussed with:: patient Medications Home Medications and Allergies Home Medications ?Medication ?Instructions ?Recorded ?Confirmed ?Type verapamil 120 mg tablet ([place]an) 240 mg PO QDAY #0 tabs 02/05/15 04/01/25 History Allergies Allergy/AdvReac Type Severity Reaction Status Date / Time No Known Allergies Allergy Verified 04/01/25 16:16 Visit Medications Acetaminophen (Acetaminophen 325 Mg Tablet) 650 mg PO Q6H PRN PRN Reason: PAIN SCALE 1-3 (mild Stop: 05/01/25 18:07 Aspirin (Aspirin Ec 81 Mg Tabec) 81 mg PO QDAY ALESSIO Stop: 05/02/25 08:59 Clopidogrel Bisulfate (Clopidogrel Bisulfate 75 Mg Tablet) 75 mg PO QDAY ALESSIO Stop: 05/02/25 08:59 Ondansetron HCl (Ondansetron Inj 2 Mg/Ml Inj 2 Ml) 4 mg IVP Q6H PRN; Protocol PRN Reason: NAUSEA OR VOMITING Stop: 05/01/25 18:07 Sennosides (Senna Tablet) 1 tab PO QDAY ALESSIO; Protocol Stop: 05/02/25 08:59 Discontinued Medications Aspirin (Aspirin 325 Mg Tablet) 325 mg PO X1 ONE Stop: 04/01/25 18:15 Clopidogrel Bisulfate (Clopidogrel Bisulfate 75 Mg Tablet) 300 mg PO X1 ONE Stop: 04/01/25 18:15 Assessment & Plan Plan 69-year-old female with past medical history of supraventricular tachycardia status post ablation, hysterectomy, hyperlipidemia, uhs-uavgdkn-zhytpivbv type 2 diabetes, constipation presenting to the ED on 04/01 with episode of complete loss of vision in the left eye which lasted roughly few minutes, recommendation was to admit the patient for workup of stroke/TIA and to obtain MRI. #TIA versus stroke rule out #Left eye blindness As noted above in HPI, patient had brief episode of total left eye blindness which resolved on its own Patient presented to ED, on examination no focal neurologic deficits and neuroexam is largely negative Teleneurology was consulted, NIH score of 0 Left eye 12, right eye 11 intraocular pressure in the ED U tox was also negative. Chest x-ray showed no acute findings head CT was negative for any acute hemorrhage and head and neck CTA was also negative EKG showed sinus rhythm with nonspecific T wave changes ASCVD risk score 22.8% Risk of cardiovascular event (coronary or stroke or non-fatal [place] or stroke) in next 10 years. Plan: MR stroke protocol Neurologist consulted, appreciate recommendations DAPT with Plavix 75 daily and aspirin 81 daily High intensity statin, atorvastatin 40 Head of bed greater than 30, euglycemic, euthermic protocol Monitor blood pressure Every 4 neurochecks Echo with bubble study ordered Follow-up on morning lipid panel and A1c #History of supraventricular tachycardia #Hypertension As noted above and the patient follows up with Dr. Thakur outpatient Has had ablations for SVTs Currently on verapamil 240 mg p.o. daily Patient also on apparently metoprolol succinate 50 mg p.o. daily Plan: Restarted home medications, patient to bring pills from home Will consider restarting beta-mauro on following day #Szi-qfdneef-vowmrgxzd type 2 diabetes Last A1c in September showed A1c of 6.9 Patient on Ozempic 0.25 mg Plan: Sliding scale insulin Follow-up on morning A1c #Constipation Patient apparently has gone 1 month without having a bowel movement in the past Has been put on lactulose regimen Plan: Currently on senna for bowel regimen, will consider adding lactulose if patient remains constipated in the hospital Health Maintenance: Lines: PIV Diet: Cardiac Bowel: Senna GI prophylaxis: Not needed DVT prophylaxis: SCD Dispo: Stroke rule out Code: Full Patient seen and assessed with attending Dr. Larry Garcia, DO PGY-2 Internal Medicine - [facility] Attending Provider Attestation/Addendum Face to face evaluation was performed by me. I have personally seen and examined the patient. I discussed the assessment and plan with the entire medicine team. I reviewed available medical records, imaging studies, laboratory results. I agree with the above subjective data, objective findings, assessment and plan except as corrected by me or noted below Amaurosis fugax left side TIA Hyperlipidemia Patient's vision returned to normal, suspect TIA obtain MRI and cardiac echo continue with baby aspirin and increase atorvastatin dosage, therapy and neurology consults - More than > 30 minutes spent on the encounter and in
[2025-04-01] MEDS: CLOPIDOGREL BISULFATE 75 MG TABLET 300 MG PO (18:54)
--- NOTE | 2025-04-01 20:17 | PC.NURSE ---
attempted to call tele nurse to give report but nurse states they are providing pt care. will call back in 10 min
[2025-04-01] MEDS: ATORVASTATIN CALCIUM 20 MG TABLET 40 MG PO (21:28)
[2025-04-01] MEDS: MELATONIN 3 MG TABLET 6 MG PO (23:22)
--- NOTE | 2025-04-01 23:44 | PD.NEUROPROG ---
Documentation for date of: 04/01/25 Subjective Subjective Interval history: Patient is in telemetry, no recurrent symptoms reported. Exam - Neurology Vital Signs Temp Pulse Resp BP Pulse Ox O2 Del Method 97.6 F 66 18 151/76 H 98 Room Air 04/01/25 22:00 04/01/25 22:00 04/01/25 22:00 04/01/25 22:00 04/01/25 22:00 04/01/25 22:00 Narrative Exam GENERAL APPEARANCE: Well hydrated, well-nourished in mild distress. HEENT: Normocephalic, atraumatic, extraocular movements intact. Pupils: Equal reacting to light NECK: Supple, no JVD or bruits. Parotid enlargement noted on the left CARDIOVASULAR: Heart: S1, S2 heard, regular without S3-S4 or murmur no rubs or gallops. LUNGS/CHEST: Clear to auscultation bilaterally. No rails, rhonchi, or wheezing. Normal inspection. ABDOMEN: Soft, nontender, with normal bowel sounds. No pulsatile masses. No rebound, rigidity, or guarding. Normal inspection and palpation. EXTREMITIES: Normal inspection and palpation. No edema, clubbing or cyanosis. SKIN: Warm and dry without rashes. Normal inspection. MUSCULOSKELETAL: No cervical, thoracic, lumbar or midline bony tenderness. Normal inspection. NEURO: aaox4, speech and lang, normal, no motor /sensory deficit, gait: normal. PSYCHIATRIC: mood and affect: normal. Objective Labs 04/03/25 05:48 04/03/25 05:48 Labs: Laboratory Results - last 24 hr 04/01/25 04/01/25 16:30 17:47 WBC 10.0 RBC 4.89 Hgb 14.7 Hct 42.8 MCV 88 MCH 30.1 MCHC 34.3 RDW Std Deviation 41.3 Plt Count 274 Neut % (Auto) 56 Lymph % (Auto) 34 [place] % (Auto) 6 Eos % (Auto) 3 Baso % (Auto) 1 Neut # (Auto) 5.6 Lymph # (Auto) 3.4 [place] # (Auto) 0.6 Eos # (Auto) 0.3 Baso # (Auto) 0.1 Immature Gran # (Auto) 0.03 H Absolute Nucleated RBC 0.00 Immature Gran % 0 Nucleated RBC % 0 ESR 14 PT 10.9 INR 1.0 APTT 24.8 Sodium 141 Potassium 3.8 Chloride 106 Carbon Dioxide 24.1 Anion Gap 11 BUN 11 Creatinine 0.8 Estim Creat Clear Calc 63.9 eGFR > 60 BUN/Creatinine Ratio 14 Glucose 140 H Calculated Osmolality 282 Calcium 9.9 Corrected Calcium 9.9 Magnesium 2.1 Total Bilirubin 0.4 AST 31 ALT 55 H Alkaline Phosphatase 85 Total Creatine Kinase 58 Troponin I < 0.020 C-Reactive Prot, Quant < 0.5 Total Protein 6.7 Albumin 4.7 Globulin 2.0 L Albumin/Globulin Ratio 2.4 H Ur Collection Type Clean Catch Urine Color Colorless A Urine Clarity Clear Urine pH 6.5 Ur Specific [place] 1.021 Urine Protein Negative Urine Glucose (UA) Negative Urine Ketones Negative Urine Blood 1+ A Urine Nitrite Negative Urine Bilirubin Negative Urine Urobilinogen (Auto) Negative Ur Leukocyte Esterase Negative Urine RBC 2 Urine WBC < 1 Ur Squamous Epith Cells 0 Urine Bacteria None Ur Culture Indicated? Not Indicated Urine Opiates Screen Negative Urine Fentanyl Screen Negative Ur Barbiturates Screen Negative U Amphetamin/Meth Scrn Negative U Benzodiazepines Scrn Negative U Cocaine Metab Screen Negative U Marijuana (THC) Screen Negative HCG (Qual) Negative Assessment & Plan Assessment and plan (1) TIA (transient ischemic attack): Status: Acute Assessment and plan: presenting as amarosis fugax. likely Ophthalmic artery TIA. FU with workup continue with ASA and statin
[2025-04-02] VITALS: BP 122/65; PULSE 61; PULSE 62; RESP 18; TEMP 36.3; O2SAT 99
[2025-04-02 04:00] VITALS: BP 125/61; PULSE 63; PULSE 66; RESP 18; TEMP 36.2; O2SAT 99
[2025-04-02 05:44] VITALS: BMI 26.4
[2025-04-02 06:29] LABS: Basophils # (Auto) 0.1 Thou/mm3 (0.0-0.2); Basophils % (Auto) 1 % (0-2.5); Eosinophils # (Auto) 0.3 Thou/mm3 (0.0-0.5); Eosinophils % (Auto) 4 % (0-10); Hematocrit 41.1 % (36.0-46.0); Hemoglobin 13.7 g/dL (12.0-16.0); Immature Granulocytes Auto 0.03 Thou/mm3 (0.00-0.00); Lymphocytes # (Auto) 2.4 Thou/mm3 (1.0-4.8); Lymphocytes % (Auto) 34 % (10-50); Mean Corpuscular HGB Conc 33.3 g/dl (31.0-37.0); Mean Corpuscular Hemoglobin 29.7 pg (25.0-35.0); Mean Corpuscular Volume 89 fL (80-100); Monocytes # (Auto) 0.6 Thou/mm3 (0.0-0.8); Monocytes % (Auto) 9 % (0-12); Neutrophils # (Auto) 3.5 Thou/mm3 (1.8-7.7); Neutrophils % (Auto) 51 % (37-80); Nucleated Red Blood Cell # 0.00 Thou/mm3 (0.00-0.00); Nucleated Red Blood Cell % 0 /100 WBC (0); Platelet Count 222 Thou/mm3 (140-440); RDW Standard Deviation 42.3 fL (36.4-46.3); Red Blood Count 4.61 Miln/mm3 (4.00-5.20); White Blood Count 6.9 Thou/mm3 (3.6-11.0)
--- NOTE | 2025-04-02 06:31 | PC.NURSE ---
Patient's home medication Virapamil taken to pharmacy for verification.
[2025-04-02 07:16] LABS: Glucose Estimated Average 137 mg/dL (80-131); Hemoglobin A1C 6.4 % Hgb (4.8-6.0)
[2025-04-02 07:43] LABS: Alanine Aminotransferase 44 U/L (10-49); Alkaline Phosphatase 71 U/L (46-116); Anion Gap 10 (7-16); Aspartate Amino Transferase 25 U/L (0-34); BUN/Creatinine Ratio 13 Ratio (12-20); Bilirubin,Total 0.3 mg/dL (0.3-1.2); Blood Urea Nitrogen 10 mg/dL (9-23); Calcium 9.4 mg/dL (8.3-10.6); Carbon Dioxide 26.7 mMol/L (20.0-31.0); Cardiac Risk Estimate 3.0 RATIO (3.7-5.6); Chloride 107 mMol/L (98-107); Cholesterol 188 mg/dL (132-200); Creatinine (Component) 0.8 mg/dL (0.6-1.3); Estimated Creatinine Clearance 63.9 mL/min (>60); Glucose 114 mg/dL (74-106); HDL Cholesterol 63 mg/dL (40-60); LDL Cholesterol,Calculated 109 mg/dL (0-130); Magnesium 2.2 mg/dL (1.6-2.6); Osmolality,Calculated 286 (275-295); Phosphorous 4.6 mg/dL (2.4-5.1); Potassium 4.2 mMol/L (3.4-5.1); Sodium 144 mMol/L (136-145); Total Protein 6.0 gm/dL (5.7-8.2); Triglycerides 78 mg/dL (30-150); eGFR > 60 See Note
[2025-04-02 08:00] VITALS: BP 141/86; PULSE 64; PULSE 66; RESP 16; TEMP 36.2; O2SAT 98
[2025-04-02 08:10] LABS: Albumin, Serum 4.0 gm/dL (3.4-4.8); Albumin/Globulin Ratio 2.0 (1.2-2.2); Calcium (Corrected) 9.4 mg/dL (8.5-10.1); Globulin 2.0 gm/dL (2.3-3.5)
--- NOTE | 2025-04-02 09:25 | ESPR_ITS ---
Documentation for date of: 04/02/25 Subjective Subjective Interval history: No acute events overnight. Reports trouble sleeping and says she takes Xanax 1mg half tablet at home to help with sleep. Will restart after confirming home medication per patient request after patient's partner and will bring medication from home. Will start on melatonin 6mg nightly and benadryl prn in the meantime. No complaints this morning. No left eye blindness, weakness, headache, or palpitations. Pending MRI and echo. Pending PT consult. Continue all other medications. Will likely return home after all test completed. Exam Vital Signs Temp Pulse Resp BP Pulse Ox O2 Del Method 97.1 F 63 18 125/61 99 Room Air 04/02/25 04:00 04/02/25 04:00 04/02/25 04:00 04/02/25 04:00 04/02/25 04:00 04/02/25 00:00 Narrative Exam Physical Exam General: Awake and in no acute distress. Conversational and non-toxic appearing. HEENT: Normocephalic, atraumatic, mucous membranes moist. Heart: Regular rate and rhythm, normal S1 and S2, no murmurs. Lungs: Clear to auscultation with no wheezing or crackles. Abdomen: Soft, nondistended, nontender, positive bowel sounds. No guarding or rebound tenderness. Neurologic: Alert and oriented x3, no gross neurological deficit, and patient able to move all 4 extremities. Extremities: No edema. Skin: No rash or ecchymoses. Objective Labs 04/03/25 05:48 04/03/25 05:48 Labs: Laboratory Results - last 24 hr 04/01/25 04/01/25 04/02/25 16:30 17:47 06:04 WBC 10.0 6.9 RBC 4.89 4.61 Hgb 14.7 13.7 Hct 42.8 41.1 MCV 88 89 MCH 30.1 29.7 MCHC 34.3 33.3 RDW Std Deviation 41.3 42.3 Plt Count 274 222 D Neut % (Auto) 56 51 Lymph % (Auto) 34 34 [place] % (Auto) 6 9 Eos % (Auto) 3 4 Baso % (Auto) 1 1 Neut # (Auto) 5.6 3.5 Lymph # (Auto) 3.4 2.4 [place] # (Auto) 0.6 0.6 Eos # (Auto) 0.3 0.3 Baso # (Auto) 0.1 0.1 Immature Gran # (Auto) 0.03 H 0.03 H Absolute Nucleated RBC 0.00 0.00 Immature Gran % 0 0 Nucleated RBC % 0 0 ESR 14 PT 10.9 INR 1.0 APTT 24.8 Sodium 141 144 Potassium 3.8 4.2 Chloride 106 107 Carbon Dioxide 24.1 26.7 Anion Gap 11 10 BUN 11 10 Creatinine 0.8 0.8 Estim Creat Clear Calc 63.9 63.9 eGFR > 60 > 60 BUN/Creatinine Ratio 14 13 Glucose [address] Glu mg/dL 137 H Hemoglobin A1c 6.4 H Calculated Osmolality 282 286 Calcium 9.9 9.4 Corrected Calcium 9.9 9.4 Phosphorus 4.6 Magnesium 2.1 2.2 Total Bilirubin 0.4 0.3 AST 31 25 ALT 55 H 44 Alkaline Phosphatase 85 71 Total Creatine Kinase 58 Troponin I < 0.020 C-Reactive Prot, Quant < 0.5 Total Protein 6.7 6.0 Albumin 4.7 4.0 D Globulin 2.0 L 2.0 L Albumin/Globulin Ratio 2.4 H 2.0 Triglycerides 78 Cholesterol 188 LDL Cholesterol, Calc 109 HDL Cholesterol 63 H Cholesterol/HDL Ratio 3.0 L Ur Collection Type Clean Catch Urine Color Colorless A Urine Clarity Clear Urine pH 6.5 Ur Specific [place] 1.021 Urine Protein Negative Urine Glucose (UA) Negative Urine Ketones Negative Urine Blood 1+ A Urine Nitrite Negative Urine Bilirubin Negative Urine Urobilinogen (Auto) Negative Ur Leukocyte Esterase Negative Urine RBC 2 Urine WBC < 1 Ur Squamous Epith Cells 0 Urine Bacteria None Ur Culture Indicated? Not Indicated Urine Opiates Screen Negative Urine Fentanyl Screen Negative Ur Barbiturates Screen Negative U Amphetamin/Meth Scrn Negative U Benzodiazepines Scrn Negative U Cocaine Metab Screen Negative U Marijuana (THC) Screen Negative HCG (Qual) Negative Quality Measures Quality Measures none Advance care planning discussed with:: patient Assessment & Plan Assessment Current Active Medications: Generic Name Dose Route Start Last Admin Trade Name Freq PRN Reason Stop Dose Admin Acetaminophen 650 mg 04/01/25 18:08 Acetaminophen 325 Mg Tablet PO 05/01/25 18:07 Q6H PRN PAIN SCALE 1-3 (mild Aspirin 81 mg 04/02/25 09:00 Aspirin Ec 81 Mg Tabec PO 05/02/25 08:59 QDAY ALESSIO Atorvastatin Calcium 40 mg 04/01/25 21:00 04/01/25 21:28 Atorvastatin Calcium 20 Mg Tablet PO 05/01/25 20:59 40 mg HS ALESSIO Administration Clopidogrel Bisulfate 75 mg 04/02/25 09:00 Clopidogrel Bisulfate 75 Mg Tablet PO 05/02/25 08:59 QDAY ALESSIO Verapamil 240 Mg 24 0 ea 04/02/25 09:00 Hr Er PO 05/02/25 08:59 On Hold: 04/02/25 09:00 QDAY ALESSIO Dextrose 25 ml 04/01/25 18:50 Dextrose 50%-Water Inj 50 Ml Syringe IV 05/01/25 18:49 Q15MIN PRN BG 50-70 responsive npo pt Dextrose 50 ml 04/01/25 18:50 Dextrose 50%-Water Inj 50 Ml Syringe IV 05/01/25 18:49 Q15MIN PRN BG <50 OR BG <70 & pt unresponsive Glucagon 1 mg 04/01/25 18:50 Glucagon Inj 1 Mg Vial IM Q15MIN PRN BG <70, and no IV access Insulin Human Lispro 0 unit 04/02/25 07:30 04/02/25 07:31 Insulin Lispro (Admelog) 1 Unit/0.01 Ml Unit SC 05/02/25 07:29 Not Given AC [facility] Protocol Ondansetron HCl 4 mg 04/01/25 18:08 Ondansetron Inj 2 Mg/Ml Inj 2 Ml IVP 05/01/25 18:07 Q6H PRN NAUSEA OR VOMITING Protocol Sennosides 1 tab 04/02/25 09:00 Senna Tablet PO 05/02/25 08:59 QDAY [facility] Protocol Plan 69-year-old female with past medical history of supraventricular tachycardia status post ablation, hysterectomy, hyperlipidemia, gia-jbydkzb-wgtbxtedf type 2 diabetes, constipation presenting to the ED on 04/01 with episode of complete loss of vision in the left eye which lasted roughly few minutes, recommendation was to admit the patient for workup of stroke/TIA and to obtain MRI. #TIA #Stroke rule out #Left eye blindness, resolved Had brief painless episode of total left eye blindness, resolved spontaneously. No associated temporal headache. Examination in ED showed no focal neurologic deficits and neuroexam is largely negative. Teleneurology was consulted, NIHHS score of 0. Left eye 12, right eye 11 intraocular pressure in ED. U tox negative. CXR unremarkable. Head CT was negative for any acute hemorrhage. CTA head and neck negative. EKG showed sinus rhythm with nonspecific T wave changes. More likely TIA as patient's symptoms have resolved. Score: ASCVD risk score 22.8% Risk of cardiovascular event (coronary or stroke or non-fatal [place] or stroke) in next 10 years. Plan: - MR stroke protocol - Pending echo bubble study - Neurologist Dr. Pelletier consulted, appreciate recommendations - DAPT with Plavix 75 daily and aspirin 81 daily - Atorvastatin 40 mg HS - Head of bed greater than 30, euglycemic, euthermic protocol - Permissive hypertension >220/110 for 24 hourse - Every 4 neurochecks #History of supraventricular tachycardia #Hypertension As noted above and the patient follows up with first aid instructor Dr. Thakur outpatient. Has had ablations for SVTs. Currently on verapamil 240 mg p.o. daily. Was previously on metoprolol succinate 50 mg daily however was discontinued due to side effects (patient reported headaches and weakness). Plan: - Continue home dose verapamil - Currently normotensive, no antihypertensive needed at this time #Ujn-azfonlm-joozqttox type 2 diabetes #HLD Last A1c in September showed A1c of 6.9. Started Ozempic 0.25 mg outpatient. A1c 04/02 6.4. Taking atorvastatin 10 and ezetimibe 10 at home. Lipid panel 04/02 trig 78, total 188, LDL 109, HDL 63, much improved from last lipid panel in 10/03/2024. Plan: - Sliding scale insulin - Atorvastatin 40mg QHS as above given ASCVD risk and stroke rule out - Hold home dose ezetimibe #Hx Constipation Patient apparently has gone 1 month without having a bowel movement in the past. Has been put on lactulose regimen. Plan: - Senna for now - Consider adding lactulose if patient remains constipated - CTM BMs Health Maintenance Disposition: Telemetry to rule out stroke DVT prophylaxis: SCD GI prophylaxis: none needed Diet: cardiac CODE STATUS: Full Patient plan of care was discussed with the attending physician, Dr. Juarez. Diana Franklin, PGY-1 Attending Provider Attestation/Addendum Face to face evaluation was performed by me. I have personally seen and examined the patient. I discussed the assessment and plan with the entire medicine team. I reviewed available medical records, imaging studies, laboratory results. I agree with the above subjective data, objective findings, assessment and plan except as corrected by me or noted below Amaurosis fugax left side TIA Hyperlipidemia Pending MRI and cardiac echo, continue baby aspirin and increased dose of statin, neurology consulted - More than > 30 minutes spent on the encounter and in
[2025-04-02] MEDS: CLOPIDOGREL BISULFATE 75 MG TABLET PO (09:58)
[2025-04-02] MEDS: ASPIRIN EC 81 MG TABEC PO (09:58)
[2025-04-02 12:00] VITALS: BP 137/76; PULSE 70; PULSE 76; RESP 18; TEMP 36.1; O2SAT 99
[2025-04-02] MEDS: VERAPAMIL 240 MG PO (12:49)
--- NOTE | 2025-04-02 15:00 | PC.SS ---
Shyann George is a 69-year-old female admitted to [facility] for Stroke R/O. SS conducted bedside contact with the patient to complete initial assessment and to discuss discharge planning. Role and reason explained. Patient confirmed demographic information. Patient identifies life partner Leonid Otero [phone] as her surrogate decision maker. Pt states she is able to complete all ADL?s independently. No need for any source of DME. Pts PCP is Dr. Campos. Pharmacy of choice is [facility]. Discharge options discussed and the pt wishes to return home.? Family will provide transportation upon DC. No further intervention required at this time, psychotherapist social worker would be available to address any further concerns. DC Plan: Home Contact: Leonid PERES Address: Confirmed on face sheet PCP: Andres
[2025-04-02 16:00] VITALS: BP 113/82; PULSE 72; PULSE 80; RESP 17; TEMP 36.1; O2SAT 96
--- NOTE | 2025-04-02 16:21 | PC.SS ---
Rounding: Pending MRI and ECHO, DC plan home
[2025-04-02] MEDS: ACETAMINOPHEN 325 MG TABLET 650 MG PO (19:52)
[2025-04-02 20:00] VITALS: BP 140/84; PULSE 61; PULSE 62; RESP 14; TEMP 36.1; O2SAT 97
[2025-04-02] MEDS: LACTULOSE SYRUP 20 GM/30 ML UDC 10 GM PO (20:17)
[2025-04-02] MEDS: ATORVASTATIN CALCIUM 20 MG TABLET 40 MG PO (20:17)
--- NOTE | 2025-04-02 23:17 | PD.NEUROPROG ---
Documentation for date of: 04/02/25 Subjective Subjective Interval history: Patient is in telemetry, no recurrent symptoms reported. Exam - Neurology Vital Signs Temp Pulse Resp BP Pulse Ox O2 Del Method 96.9 F 62 14 140/84 H 97 Room Air 04/02/25 20:00 04/02/25 20:00 04/02/25 20:00 04/02/25 20:00 04/02/25 20:00 04/02/25 20:00 Narrative Exam GENERAL APPEARANCE: Well hydrated, well-nourished inno acute distress. HEENT: Normocephalic, atraumatic, extraocular movements intact. Pupils: Equal reacting to light NECK: Supple, no JVD or bruits. Parotid enlargement noted on the left CARDIOVASULAR: Heart: S1, S2 heard, regular without S3-S4 or murmur no rubs or gallops. LUNGS/CHEST: Clear to auscultation bilaterally. No rails, rhonchi, or wheezing. Normal inspection. ABDOMEN: Soft, nontender, with normal bowel sounds. No pulsatile masses. No rebound, rigidity, or guarding. Normal inspection and palpation. EXTREMITIES: Normal inspection and palpation. No edema, clubbing or cyanosis. SKIN: Warm and dry without rashes. Normal inspection. MUSCULOSKELETAL: No cervical, thoracic, lumbar or midline bony tenderness. Normal inspection. NEURO: aaox4, speech and lang, normal, no motor /sensory deficit, gait: normal. PSYCHIATRIC: mood and affect: normal. Objective Labs 04/03/25 05:48 04/03/25 05:48 Labs: Laboratory Results - last 24 hr 04/02/25 06:04 WBC 6.9 RBC 4.61 Hgb 13.7 Hct 41.1 MCV 89 MCH 29.7 MCHC 33.3 RDW Std Deviation 42.3 Plt Count 222 D Neut % (Auto) 51 Lymph % (Auto) 34 [place] % (Auto) 9 Eos % (Auto) 4 Baso % (Auto) 1 Neut # (Auto) 3.5 Lymph # (Auto) 2.4 [place] # (Auto) 0.6 Eos # (Auto) 0.3 Baso # (Auto) 0.1 Immature Gran # (Auto) 0.03 H Absolute Nucleated RBC 0.00 Immature Gran % 0 Nucleated RBC % 0 Sodium 144 Potassium 4.2 Chloride 107 Carbon Dioxide 26.7 Anion Gap 10 BUN 10 Creatinine 0.8 Estim Creat Clear Calc 63.9 eGFR > 60 BUN/Creatinine Ratio 13 [address]ucose [address] Glu mg/dL 137 H Hemoglobin A1c 6.4 H Calculated Osmolality 286 Calcium 9.4 Corrected Calcium 9.4 Phosphorus 4.6 Magnesium 2.2 Total Bilirubin 0.3 AST 25 ALT 44 Alkaline Phosphatase 71 Total Protein 6.0 Albumin 4.0 D Globulin 2.0 L Albumin/Globulin Ratio 2.0 Triglycerides 78 Cholesterol 188 LDL Cholesterol, Calc 109 HDL Cholesterol 63 H Cholesterol/HDL Ratio 3.0 L Assessment & Plan Assessment and plan (1) TIA (transient ischemic attack): Status: Acute Assessment and plan: presenting as amarosis fugax. likely Ophthalmic artery TIA. FU with workup continue with ASA and statin
[2025-04-03] VITALS: BP 109/58; PULSE 53; PULSE 57; RESP 14; TEMP 36.3; O2SAT 97
--- NOTE | 2025-04-03 | XR_ITS ---
Examinations: MRI Brain without intravenous contrast. MRA brain without intravenous contrast. MRA carotids without intravenous contrast 3-D vascular reconstructions Date and time of exam: April 03, 2025 0941 hours INDICATIONS: CT stroke alert 04/01/2025, episode complete loss of vision in the left eye lasting several minutes Technique: Multiple axial and sagittal images of the brain have been obtained MRA brain carotid images without contrast obtained, including 3-D postprocessing, vascular maximum intensity projection images Findings: Sellaturcica is not enlarged. The optic chiasm and infundibular stalk are not remarkable. Prepontine and interpeduncular cisterns are not enlarged. No localized enlargement of the medulla or jorge. Fourth ventricle and cerebellar tonsils normal in position. Subacute hemorrhage is not seen. Fourth ventricle is midline. Mass in the cerebellopontine angle region is not evident. 7th and 8th nerve complexes exhibits symmetry. Globes are symmetrical with no retro-orbital mass. Increased white matter signal mild Diffusion-weighted images demonstrate no focus of restricted diffusion Mass-effect upon the ventricular system is not identified. MRA carotid images no significant carotid stenoses. MRA brain images no cerebral large vessel arterial occlusions Impression: Negative for acute hemorrhage, mass effect or midline shift No acute infarct
[2025-04-03 04:00] VITALS: BP 115/75; PULSE 65; RESP 14; TEMP 36.3; O2SAT 97
[2025-04-03 04:13] VITALS: BMI 26.4
[2025-04-03 06:07] LABS: Basophils # (Auto) 0.1 Thou/mm3 (0.0-0.2); Basophils % (Auto) 1 % (0-2.5); Eosinophils # (Auto) 0.3 Thou/mm3 (0.0-0.5); Eosinophils % (Auto) 4 % (0-10); Hematocrit 44.4 % (36.0-46.0); Hemoglobin 14.8 g/dL (12.0-16.0); Immature Granulocytes Auto 0.02 Thou/mm3 (0.00-0.00); Lymphocytes # (Auto) 3.1 Thou/mm3 (1.0-4.8); Lymphocytes % (Auto) 42 % (10-50); Mean Corpuscular HGB Conc 33.3 g/dl (31.0-37.0); Mean Corpuscular Hemoglobin 29.7 pg (25.0-35.0); Mean Corpuscular Volume 89 fL (80-100); Monocytes # (Auto) 0.6 Thou/mm3 (0.0-0.8); Monocytes % (Auto) 7 % (0-12); Neutrophils # (Auto) 3.4 Thou/mm3 (1.8-7.7); Neutrophils % (Auto) 45 % (37-80); Nucleated Red Blood Cell # 0.00 Thou/mm3 (0.00-0.00); Nucleated Red Blood Cell % 0 /100 WBC (0); Platelet Count 264 Thou/mm3 (140-440); RDW Standard Deviation 42.0 fL (36.4-46.3); Red Blood Count 4.98 Miln/mm3 (4.00-5.20); White Blood Count 7.5 Thou/mm3 (3.6-11.0)
[2025-04-03 06:31] LABS: Alanine Aminotransferase 42 U/L (10-49); Albumin, Serum 4.4 gm/dL (3.4-4.8); Albumin/Globulin Ratio 2.2 (1.2-2.2); Alkaline Phosphatase 81 U/L (46-116); Anion Gap 10 (7-16); Aspartate Amino Transferase 24 U/L (0-34); BUN/Creatinine Ratio 14 Ratio (12-20); Bilirubin,Total 0.4 mg/dL (0.3-1.2); Blood Urea Nitrogen 11 mg/dL (9-23); Calcium 9.6 mg/dL (8.3-10.6); Calcium (Corrected) 9.6 mg/dL (8.5-10.1); Carbon Dioxide 27.8 mMol/L (20.0-31.0); Chloride 105 mMol/L (98-107); Creatinine (Component) 0.8 mg/dL (0.6-1.3); Estimated Creatinine Clearance 63.9 mL/min (>60); Globulin 2.0 gm/dL (2.3-3.5); Glucose 122 mg/dL (74-106); Osmolality,Calculated 285 (275-295); Potassium 3.9 mMol/L (3.4-5.1); Sodium 143 mMol/L (136-145); Total Protein 6.4 gm/dL (5.7-8.2); eGFR > 60 See Note
[2025-04-03 08:00] VITALS: BP 126/72; PULSE 60; PULSE 78; RESP 17; TEMP 36.1; O2SAT 96
--- NOTE | 2025-04-03 09:08 | PC.SS ---
Follow up note: MRI pending. Pt will return home upon dc.
[2025-04-03] MEDS: CLOPIDOGREL BISULFATE 75 MG TABLET PO (09:16)
[2025-04-03] MEDS: ASPIRIN EC 81 MG TABEC PO (09:16)
--- NOTE | 2025-04-03 10:21 | PD.RESDS ---
Planned Discharge Date 04/03/25 DS: Providers Provider Date of admission: 04/01/25 18:09 Primary care physician: Physician No Primary/Family Admitting Provider: Josiah Juarez MD Attending Provider on Admission: Josiah Juarez MD Consults: 04/01/25 16:29 Consult to Neurology / Tele-Neurology Stat Comment: Consulting Provider: [facility] 04/01/25 18:12 Consult to Neurology / Tele-Neurology Routine Comment: Stroke r/o, tia Consulting Provider: Srinivasa Pelletier 04/01/25 18:15 Referral Physical Therapy Routine Comment: Physician Instructions: Attending Provider on DC: Josiah Juarez MD Discharging Provider: RESIDENT Carolynn DS: Diagnosis Problem List Completed Was Problem List Reviewed/Reconciled?: Yes Hospital Course Hospital Course Hospital course: Summary: Patient is a 69-year-old female with PMH of supraventricular tachycardia status post ablation, hysterectomy, HLD, NIDDM2, constipation presenting on 04/01 with episode of complete loss of vision in the left eye which lasted roughly few minutes, now resolved, admitted for TIA/stroke work up. ED Course: Vitals: BP was 85/85, HR 101, RR 16, afebrile, 96% on room air. Labs: CBC within normal limits. ALT 55, rest of CBC otherwise unremarkable. UA negative. EKG sinus rhythm without ST or T wave abnormalities. Imaging: CXR, head CT, head and neck CTA all negative. Given in ED: Tylenol x 1, Zofran 4 mg IV x 1, senna x 1 Reason for hospitalization: Patient is a 69-year-old female with PMH of supraventricular tachycardia status post ablation, hysterectomy, HLD, NIDDM2, constipation presenting on 04/01 with episode of complete loss of vision in the left eye which lasted roughly few minutes, now resolved, admitted for TIA/stroke work up. CXR, head CT, and head/neck CTA all unremarkable. Teleneuro consulted in ED, started on DAPT with Plavix 75 mg daily and aspirin 81 daily. Started atorvastatin 40 mg nightly. Stroke precautions initiated. Patient remained asymptomatic throughout hospital course. MRI negative for acute stroke. Echo with bubble study showed EF of 65%, grade 1 diastolic dysfunction. RV and LV are normal size and function. Trace MR and TR. No PFO noted. Consulted neurology Dr. Pelletier who recommend discharging on statin and aspirin 81 mg daily. No Plavix needed. Likely TIA amaurosis fugax. Resume all other home medications. Patient was medically stable on discharge, will be returning home. Discharge Recommendations: -Follow-up with PCP within 1 week of discharge. If you do not have appointment, please follow-up with the [facility] with Dr. Monk. Call [phone] to make an appointment. -Start aspirin 81 mg once daily and atorvastatin 40 mg at bedtime -Recommend to continue verapamil 240 mg p.o. daily -Continue to monitor with apparel designer, Dr. Thakur on outpatient basis -Return to ED if symptoms persist or return Hospital Diagnoses: #TIA #Amarosis fugax #Left eye blindness #History of supraventricular tachycardia #Hypertension #[id number] type 2 diabetes #Constipation Disposition: Safe discharge to home. Patient plan of care was discussed with the attending physician, Dr. Juarez. Diana Franklin, PGY-1 Time Spent with Patient Time attestation: Total time spent providing and/or coordinating discharge services: At least 30 minutes of care coordination Time spent: Greater than 30 minutes Exam Vital Signs Temp Pulse Resp BP Pulse Ox O2 Del Method 97.0 F 60 17 126/72 96 Room Air 04/03/25 08:00 04/03/25 08:00 04/03/25 08:00 04/03/25 08:00 04/03/25 08:00 04/03/25 08:00 Narrative Exam Physical Exam General: Awake and in no acute distress. Conversational and non-toxic appearing. HEENT: Normocephalic, atraumatic, mucous membranes moist. Heart: Regular rate and rhythm, normal S1 and S2, no murmurs. Lungs: Clear to auscultation with no wheezing or crackles. Abdomen: Soft, nondistended, nontender, positive bowel sounds. No guarding or rebound tenderness. Neurologic: Alert and oriented x3, no gross neurological deficit, and patient able to move all 4 extremities. Extremities: No edema. Skin: No rash or ecchymoses. Discharge Plan Plan Patient Disposition: HOME (Self Care) Patient condition on transfer: Stable Care Plan Goals: -Follow-up with PCP within 1 week of discharge. If you do not have appointment, please follow-up with the [facility] with Dr. Monk. Call [phone] to make an appointment. -Start aspirin 81 mg once daily and atorvastatin 40 mg at bedtime -Recommend to continue verapamil 240 mg p.o. daily -Continue to monitor with apparel designer, Dr. Thakur on outpatient basis -Return to ED if symptoms persist or return Prescriptions/Referrals Prescriptions/Med Rec: New atorvastatin 20 mg Tablet 40 mg PO HS Qty: 30 0RF aspirin 81 mg Tablet,Delayed Release (Dr/Ec) 81 mg PO QDAY Qty: 30 0RF Continued verapamil [Calan] 120 MG tablet 240 mg PO QDAY Qty: 0 Discontinued ezetimibe 10 mg tablet 10 mg PO QDAY pantoprazole [Protonix] 40 mg Tablet,Delayed Release (Dr/Ec) 40 mg PO QDAY 90 Days Qty: 90 1RF metoclopramide HCl [Reglan] 5 mg Tablet 5 mg PO QDAY 90 Days Qty: 90 1RF atorvastatin 10 mg tablet 10 mg PO HS Patient Comments: TAKE 1 TABLET BY MOUTH EVERYDAY AT BEDTIME Referrals: No Primary/Family,Physician [Primary Care Provider] Patient/Caregiver Discharge Instructions Education Materials: Effects of a Stroke on the ..., What Is Ischemic Stroke?, What Is a TIA?, Stroke: Taking Medicines, Stroke: Self-Care, Discharge Instructions for Stroke, Risk Factors for Stroke, Stroke Prevention Activity, Glucose Check Steps, Insulin Injection Steps, Hypoglycemia Steps, ED TIA: Transient Ischemic Attack Print Language: Turkmen Stand Alone Forms: Rachel Award Info., Patient Portal Info Letter Discharge Order Discharge Orders: Discharge (Routine); Ordered 04/03/25 Ordered By: Rigoberto Monk Quality Discharge Quality Measures VTE prophylaxis
[2025-04-03] MEDS: VERAPAMIL 240 MG PO (10:56)
[2025-04-03 12:00] VITALS: PULSE 80
[2025-04-03 12:45] VITALS: BP 132/83; PULSE 72; RESP 19; TEMP 36; O2SAT 97
--- NOTE | 2025-04-03 12:54 | PD.ADDDSCHGE ---
Addendum Discharge Addendum Date of report being addended: 04/03/25 Narrative: Face to face evaluation was performed by me. I have personally seen and examined the patient. I discussed the assessment and plan with the entire medicine team. I reviewed available medical records, imaging studies, laboratory results. I agree with the above subjective data, objective findings, assessment and plan except as corrected by me or noted below Amaurosis fugax left side TIA Hyperlipidemia Patient is neurologically back to her normal, continue with baby aspirin and increase dose of atorvastatin to 40 mg daily, Patient to follow-up with PCP as soon as possible - More than > 30 minutes spent on the encounter and in
--- NOTE | 2025-04-03 17:07 | ESPR_ITS ---
Documentation for date of: 04/03/25 Subjective Subjective Interval history: This is 69-year-old female with past medical history of supraventricular tachycardia status post ablation, hysterectomy, hyperlipidemia, [id number]-alsnjnhtu type 2 diabetes, constipation presenting to the ED on 04/01 with episode of complete loss of vision in the left eye which lasted roughly few minutes. Patient states she was sitting and watching TV at home when suddenly she started gradually losing vision in her left eye and then had complete vision loss which lasted several minutes. Patient states her vision spontaneously returned but she has never experienced such episode before. Patient has extensive medical history including cardiac history and has been on verapamil SR since the year 1999 for supraventricular tachycardia. Patient has tried ablations in the past which have apparently had mixed results, last one was in 2007. Patient currently follows up with website optimization strategist, Dr. Thakur and denies having any concerning cardiac symptoms at this time. In the ED, patient was initially hypertensive and tachycardic and afebrile. Labs were unremarkable. Troponin I was within normal limits. EKG was showing sinus rhythm with no acute ST-T changes. Stroke alert was initiated. 04/03/2025: Patient was seen and examined at the bedside. Patient's left eye vision was normal. No acute focal neurological deficits were seen. Patient walked with the nurse down the hallway and denied any new symptoms including dizziness or weakness. MRI brain showed no acute infarct. echo with bubble study was negative with EF 65% with diastolic dysfunction. Recommended to continue aspirin 81 mg once daily and atorvastatin 40 mg at bedtime. Patient can be safely discharged from neurology standpoint. Exam Vital Signs Temp Pulse Resp BP Pulse Ox O2 Del Method 96.8 F 72 19 132/83 H 97 Room Air 04/03/25 12:45 04/03/25 12:45 04/03/25 12:45 04/03/25 12:45 04/03/25 12:45 04/03/25 12:45 Narrative Exam General: Awake and in no acute distress. Conversational and non-toxic appearing. HEENT: Normocephalic, atraumatic, mucous membranes moist. Heart: Regular rate and rhythm, normal S1 and S2, no murmurs. Lungs: Clear to auscultation with no wheezing or crackles. Abdomen: Soft, nondistended, nontender, positive bowel sounds. No guarding or rebound tenderness. Neurologic: Alert and oriented x3, no gross neurological deficit, and patient able to move all 4 extremities. Extremities: No edema. Skin: No rash or ecchymoses. Objective Labs 04/03/25 05:48 04/03/25 05:48 Labs: Laboratory Results - last 24 hr 04/03/25 05:48 WBC 7.5 RBC 4.98 Hgb 14.8 Hct 44.4 MCV 89 MCH 29.7 MCHC 33.3 RDW Std Deviation 42.0 Plt Count 264 D Neut % (Auto) 45 Lymph % (Auto) 42 Cedar % (Auto) 7 Eos % (Auto) 4 Baso % (Auto) 1 Neut # (Auto) 3.4 Lymph # (Auto) 3.1 Cedar # (Auto) 0.6 Eos # (Auto) 0.3 Baso # (Auto) 0.1 Immature Gran # (Auto) 0.02 H Absolute Nucleated RBC 0.00 Immature Gran % 0 Nucleated RBC % 0 Sodium 143 Potassium 3.9 Chloride 105 Carbon Dioxide 27.8 Anion Gap 10 BUN 11 Creatinine 0.8 Estim Creat Clear Calc 63.9 eGFR > 60 BUN/Creatinine Ratio 14 Glucose 122 H Calculated Osmolality 285 Calcium 9.6 Corrected Calcium 9.6 Total Bilirubin 0.4 AST 24 ALT 42 Alkaline Phosphatase 81 Total Protein 6.4 Albumin 4.4 Globulin 2.0 L Albumin/Globulin Ratio 2.2 Quality Measures Quality Measures VTE prophylaxis (Heparin subcut) Advance care planning discussed with:: patient Assessment & Plan Assessment Current Active Medications: Generic Name Dose Route Start Last Admin Trade Name Freq PRN Reason Stop Dose Admin Acetaminophen 650 mg 04/01/25 18:08 04/02/25 19:52 Acetaminophen 325 Mg Tablet PO 05/01/25 18:07 650 mg Q6H PRN Administration PAIN SCALE 1-3 (mild Alprazolam 0.5 mg 04/03/25 21:00 Alprazolam 0.25 Mg Tablet PO 04/08/25 20:59 HS PRN ANXIETY Aspirin 81 mg 04/02/25 09:00 04/03/25 09:16 Aspirin Ec 81 Mg Tabec PO 05/02/25 08:59 81 mg QDAY ALESSIO Administration Atorvastatin Calcium 40 mg 04/01/25 21:00 04/02/25 20:17 Atorvastatin Calcium 20 Mg Tablet PO 05/01/25 20:59 40 mg HS ALESSIO Administration Clopidogrel Bisulfate 75 mg 04/02/25 09:00 04/03/25 09:16 Clopidogrel Bisulfate 75 Mg Tablet PO 05/02/25 08:59 75 mg QDAY ALESSIO Administration Verapamil 240 Mg 24 0 ea 04/02/25 09:00 04/03/25 10:56 Hr Er PO 05/02/25 08:59 1 capsule QDAY ALESSIO Administration Dextrose 25 ml 04/01/25 18:50 Dextrose 50%-Water Inj 50 Ml Syringe IV 05/01/25 18:49 Q15MIN PRN BG 50-70 responsive npo pt Dextrose 50 ml 04/01/25 18:50 Dextrose 50%-Water Inj 50 Ml Syringe IV 05/01/25 18:49 Q15MIN PRN BG <50 OR BG <70 & pt unresponsive Diphenhydramine HCl 25 mg 04/02/25 11:37 Diphenhydramine 25 Mg Capsule PO 05/02/25 11:36 Q6HR PRN ITCHING Glucagon 1 mg 04/01/25 18:50 Glucagon Inj 1 Mg Vial IM Q15MIN PRN BG <70, and no IV access Insulin Human Lispro 0 unit 04/02/25 07:30 04/03/25 08:00 Insulin Lispro (Admelog) 1 Unit/0.01 Ml Unit SC 05/02/25 07:29 Not Given AC ALESSIO Protocol Melatonin 6 mg 04/02/25 21:00 04/02/25 20:26 Melatonin 3 Mg Tablet PO 05/02/25 20:59 Not Given HS ALESSIO Ondansetron HCl 4 mg 04/01/25 18:08 Ondansetron Inj 2 Mg/Ml Inj 2 Ml IVP 05/01/25 18:07 Q6H PRN NAUSEA OR VOMITING Protocol Polyethylene Glycol 17 gm 04/03/25 07:33 Polyethylene Glycol 17 Gm Packet PO X1 PRN constipation Sennosides 1 tab 04/02/25 09:00 04/03/25 09:15 Senna Tablet PO 05/02/25 08:59 1 tab QDAY ALESSIO Administration Protocol Plan This patient is a 69-year-old female with past medical history of SVT post ablation, hysterectomy, hyperlipidemia, non-insulin type 2 diabetes, chronic constipation presented to the ED on 04/01 with complete loss of vision in the left eye lasted for few minutes. Admitted for workup of TIA versus stroke. #Possible TIA, resolved #Stroke, ruled out #Left eye vision loss/amaurosis fugax, resolved Patient presented with complete left eye blindness which resolved spontaneously. No associated nausea vomiting or headaches. Head CT and head and neck CTA showed no acute changes. Teleneuro was consulted. NIHSS score 0. Intraocular pressure was measured in the ED left eye was 12 and right eye was 11. EKG showed sinus rhythm with no acute ST-T changes. MRI brain showed no acute infarct. Therefore stroke was ruled out. Echocardiogram showed EF 65% with diastolic dysfunction. Plan: Recommended to continue aspirin and statin No further PT required per physical therapy Patient is stable from neurologic standpoint and can be safely discharged Chronic problems #History of SVT #History of hypertension #Non-insulin dependent type 2 diabetes #History of hyperlipidemia #History of constipation Rest of the management as per primary care team. Plan of care discussed with Neurologist, Dr. Liyah Lemus MD, PGY 3 Attending Provider Attestation/Addendum I did the virtual review of the chart and I agreed with resident's findings, assessment and plan of care. Imp: TIA/amaurosis fugas Workup is negative. Continue with statin and asa Stable for D/C
== END 2025-04-03 13:45 | disposition home or self-care (01) | DRG 123 ==
LOC: SERX 17:48 → SERHOLD 18:43 → S2NX 20:56
PROVIDERS: Admitting Provider Internal Medicine; Emergency Provider Emergency Medicine; Visit Provider Internal Medicine
DX: G45.3 Amaurosis fugax (principal); I47.10 Supraventricular tachycardia, unspecified; E78.5 Hyperlipidemia, unspecified; E11.9 Type 2 diabetes mellitus without complications; I10 Essential (primary) hypertension; K59.00 Constipation, unspecified; Z79.02 Long term (current) use of antithrombotics/antiplatelets; Z79.82 Long term (current) use of aspirin; Z79.899 Other long term (current) drug therapy; Z87.891 Personal history of nicotine dependence; Z90.710 Acquired absence of both cervix and uterus; Z79.84 Long term (current) use of oral hypoglycemic drugs
CPT/HCPCS: 36415; 70450; 70496; 70498; 70544; 71045; 80053; 80061; 80307; 81001; 82550; 83036; 83735; 84100; 84484; 84703; 85025; 85610; 85652; 85730; 86140; 93005; 93306; 94762; 97161; 99284; A4649; Q9967; A9270

== ENCOUNTER → 2025-05-16 | Outpatient (CLI) | payer MEDICARE, SELFPAY ==
[2025-05-16 17:14] LABS: Collection Type, Urine Clean Catch
[2025-05-16 17:33] LABS: Basophils # (Auto) 0.1 Thou/mm3 (0.0-0.2); Basophils % (Auto) 1 % (0-2.5); Eosinophils # (Auto) 0.3 Thou/mm3 (0.0-0.5); Eosinophils % (Auto) 3 % (0-10); Hematocrit 41.4 % (36.0-46.0); Hemoglobin 13.9 g/dL (12.0-16.0); Immature Granulocytes Auto 0.03 Thou/mm3 (0.00-0.00); Lymphocytes # (Auto) 2.9 Thou/mm3 (1.0-4.8); Lymphocytes % (Auto) 36 % (10-50); Mean Corpuscular HGB Conc 33.6 g/dl (31.0-37.0); Mean Corpuscular Hemoglobin 29.6 pg (25.0-35.0); Mean Corpuscular Volume 88 fL (80-100); Monocytes # (Auto) 0.9 Thou/mm3 (0.0-0.8); Monocytes % (Auto) 11 % (0-12); Neutrophils # (Auto) 4.0 Thou/mm3 (1.8-7.7); Neutrophils % (Auto) 49 % (37-80); Nucleated Red Blood Cell # 0.00 Thou/mm3 (0.00-0.00); Nucleated Red Blood Cell % 0 /100 WBC (0); Platelet Count 284 Thou/mm3 (140-440); RDW Standard Deviation 43.9 fL (36.4-46.3); Red Blood Count 4.69 Miln/mm3 (4.00-5.20); White Blood Count 8.1 Thou/mm3 (3.6-11.0)
[2025-05-16 17:46] LABS: Bacteria,Urine Rare; Bilirubin,Urine Negative (Negative); Blood,Urine 3+ (Negative); Clarity,Urine Clear (Clear/Hazy); Color,Urine Yellow (Lt Yel-Yel); Glucose, Urine Negative (Negative); Ketones,Urine Negative (Negative); Leukocyte Esterase,Urine Negative (Negative); Nitrite,Urine Negative (Negative); PH,Urine 6.0 (5.0-7.0); Protein,Urine Trace (Neg - Trace); RBC,Urine 39 /hpf (0-3); Specific Gravity,Urine 1.023 (1.001-1.035); Squamous Epithelial Cell,Urine 18 /hpf (0-5); Urobilinogen,Urine 2.0 mg/dL (0.0-1.0); WBC,Urine 4 /hpf (0-5)
[2025-05-16 17:49] LABS: Alanine Aminotransferase 34 U/L (10-49); Albumin, Serum 4.6 gm/dL (3.4-4.8); Albumin/Globulin Ratio 2.6 (1.2-2.2); Alkaline Phosphatase 71 U/L (46-116); Amylase < 20 U/L (30-118); Anion Gap 10 (7-16); Aspartate Amino Transferase 23 U/L (0-34); BUN/Creatinine Ratio 11 Ratio (12-20); Bilirubin,Total 0.4 mg/dL (0.3-1.2); Blood Urea Nitrogen 9 mg/dL (9-23); Calcium 9.1 mg/dL (8.3-10.6); Calcium (Corrected) 9.1 mg/dL (8.5-10.1); Carbon Dioxide 27.6 mMol/L (20.0-31.0); Chloride 104 mMol/L (98-107); Creatinine (Component) 0.8 mg/dL (0.6-1.3); Globulin 1.8 gm/dL (2.3-3.5); Glucose 105 mg/dL (74-106); Lipase 19 U/L (12-53); Osmolality,Calculated 281 (275-295); Potassium 3.7 mMol/L (3.4-5.1); Sodium 142 mMol/L (136-145); Total Protein 6.4 gm/dL (5.7-8.2); eGFR > 60 See Note
== END | disposition home or self-care (01) ==
LOC: COPL 17:02
PROVIDERS: PCP Internal Medicine; Referring Provider Specialist; Visit Provider Specialist
DX: R14.0 Abdominal distension (gaseous) (principal); R10.13 Epigastric pain
CPT/HCPCS: 36415; 80053; 81001; 82150; 83690; 85025

== ENCOUNTER → 2025-05-17 | Outpatient (CLI) | payer MEDICARE, SELFPAY ==
--- NOTE | 2025-05-17 08:47 | XR_ITS ---
Examination: Abdomen AP single view Technique: AP portable supine abdomen, single view Exam date and time: May 17, 2025, 0903 hours INDICATIONS: Left lower abdominal pain epigastric pain beginning 3 days ago. FINDINGS: Moderate air and stool in the right colon No obstruction Mild small bowel ileus No free air Left ventricle appears enlarged IMPRESSION: Nonobstructive bowel gas pattern
--- NOTE | 2025-05-17 09:38 | XR_ITS ---
Examination: CT abdomen with intravenous contrast CT pelvis with intravenous contrast 2-D coronal reconstructions 2-D sagittal reconstructions Date and time of exam: May 17, 2025, 0953 hours, comparison March 12, 2022 INDICATIONS: Epigastric pain with left lower abdominal pain beginning today. CTDI: vol (mGy) 8.42 DLP: (mGycm) 165 Technique: Multiple axial sections of the abdomen and pelvis have been obtained. 64 slice high-resolution scanner used. 3 mm axial sections have been obtained, post intravenous injection 60 cc [id number] 2-D sagittal, coronal reconstructions obtained. Low dose protocols were performed. One or more of the following dose reduction techniques were used; automated exposure control, adjustment of the mA and/or KV according to patient size, use of iterative reconstruction technique. Findings: No visualized liver or splenic lesion No gallstones No pancreatic or adrenal mass No renal or ureteral calculi No hydronephrosis Aortic calcification no aneurysmal dilatation No bowel obstruction Normal appendix No diverticulitis No pelvic mass No bladder calculi Significant osteopenia IMPRESSION: No renal or ureteral calculi, no hydronephrosis Normal appendix No bladder mass or bladder calculi
== END | disposition home or self-care (01) ==
LOC: SDIM 08:30
PROVIDERS: PCP Internal Medicine; Referring Provider Specialist; Visit Provider Specialist
DX: R14.0 Abdominal distension (gaseous) (principal); R10.13 Epigastric pain; R10.32 Left lower quadrant pain
CPT/HCPCS: 74018; 74177; A4649; Q9967